=== PATIENT | male | born 1975 | race Caucasian/White ===

== ENCOUNTER 2016-11-13 21:54 | Emergency (ER) | payer MEDICARE | END 2016-11-13 23:45 | disposition left against medical advice (07) | LOC: ER 21:54 | DX: Z53.9 Procedure and treatment not carried out, unspecified reason (principal); S61.219A Laceration without foreign body of unspecified finger without damage to nail, initial encounter; X58.XXXA Exposure to other specified factors, initial encounter ==

== ENCOUNTER 2016-11-25 12:51 | Emergency (ER) | payer OTHER, MEDICARE ==
[2016-11-25] MEDS ORDERED: IBUPROFEN 800 MG TABLET PO ONE (14:09)
--- NOTE | 2016-11-25 14:51 | ER Document Report ---
HPI - HPI Patient complains to provider of: finger injury Onset: Other - 11/13/16 Onset/Duration: Persistent Quality of pain: Achy Severity: Moderate Pain Level: 3 Context: Patient presents emergency department with complaints of right fourth digit pain. Patient reports on November 13 he was at work at [email or web address] when he cut his finger on the ice receptacle. He came to the hospital but it was really busy so he left without being seen. He reports he went home cleaned the finger himself and put Steri-Strips on it. Today he presents due to pain and because he is unable to move the finger. He denies fever vomiting diarrhea. He reports his tetanus is up-to-date. Associated Symptoms: None Exacerbated by: Movement Relieved by: Denies Similar symptoms previously: Yes Recently seen / treated by doctor: No - DERM Skin Color: Normal Past Medical History - General Information source: Patient - Social History Smoking Status: Unknown if Ever Smoked Cigarette use (# per day): No Frequency of alcohol use: None Drug Abuse: None Occupation: [employer] Lives with: Family Family History: None Patient has suicidal ideation: No Patient has homicidal ideation: No Pulmonary Medical History: Reports: Hx Pneumonia Renal/ Medical History: Denies: Hx Peritoneal Dialysis Psychiatric Medical History: Reports: Hx Depression Surgical Hx: Negative - Immunizations Hx Diphtheria, Pertussis, Tetanus Vaccination: Yes Vertical Provider Document - CONSTITUTIONAL Agree With Documented VS: Yes Exam Limitations: No Limitations General Appearance: WD/WN, Mild Distress - winces when finger palpated or attempted to flex - INFECTION CONTROL TRAVEL OUTSIDE OF THE [place] IN LAST 30 DAYS: No - HEENT HEENT: Atraumatic, Normocephalic - NECK Neck: Supple - RESPIRATORY Respiratory: Breath Sounds Normal, No Respiratory Distress O2 Sat by Pulse Oximetry: 94 - CARDIOVASCULAR Cardiovascular: Regular Rate - MUSCULOSKELETAL/EXTREMETIES Musculoskeletal/Extremeties: Tender - right 4th digit pip with swelling, slight erythema, brisk cap refill, pt is able to flex his finger slightly, unable to healthcare management consultant. - NEURO Level of Consciousness: Awake, Alert, Appropriate Motor/Sensory: No Motor Deficit - DERM Integumentary: Warm, Dry Course - Re-evaluation Re-evalutation: 11/25/16 14:46 worried about tenosynovitis, Consulted with Dr. Wilson. Attempted to contact Dr. Wilks but he is in the OR, message left. 11/25/16 15:04 Patient was updated on possible tenosynovitis. He was updated on consult to Dr. Wilks and waiting for response. Patient is very irritated. Reports he is tired of waiting. Patient was educated on the dangers a tenosynovitis. Right now patient agrees to stay and wait for Dr. Wilks to return call. Dr. wilson assessed patient finger and she agrees it may be early signs of tenosynovitis. Patient was advised on the importance of care for this. Dr Wilson advised IV Cipro while waiting for Dr. Wilks. For the IV Cipro could be started Dr. Wilks was able to assess patient finger. He reports to the nurse- kanwal- that patient should be able to be sent home on oral antibiotics pain medication and follow-up with him in the office. Patient was instructed on this plan of care and agrees. He was also instructed on signs and symptoms of infection and importance of monitoring.. Patient received light duty for work. He verbalized understanding to all instructions. - Vital Signs Vital signs: Temp Pulse Resp BP Pulse Ox 98.9 F 80 16 114/77 94 11/25/16 13:08 11/25/16 13:08 11/25/16 13:08 11/25/16 13:08 11/25/16 13:08 - Diagnostic Test Radiology reviewed: Image reviewed, Reports reviewed - Diagnostic report text EXAM DESCRIPTION: FINGER RIGHT COMPLETED DATE/TIME: 11/25/2016 2 :26 pm REASON FOR STUDY: right 4th finger, laceration, unable tomove COMPARISON: None. NUMBER OF VIEWS: Three views. TECHNIQUE: AP, lateral, and oblique images acquired of the right fourth finger. LIMITATIONS: None. FINDINGS: MINERALIZATION: Normal. BONES: No acute fracture or dislocation. No worrisome bone lesions. SOFT TISSUES: Right 4th finger PIP joint region soft tissue swelling. No foreign body. OTHER: No other significant finding. COMMENT: SITE OF TRAUMA/COMPLAINT MARKED/STAMP COMPLETED: YES. TECHNICAL DOCUMENTATION: JOB ID: [id number] [employer]- All Rights Reserved RAD/FINGER RIGHT IMPRESSION: 4th finger PIP joint region soft tissue swelling. No acute fracture or malalignment Discharge - Discharge Clinical Impression: Finger injury Condition: Stable Disposition: HOME, SELF-CARE Instructions: Ciprofloxacin ([facility]), Oral Narcotic Medication ([facility]) Additional Instructions: *You have been treated for a finger injury, suspect tenosynovitis *Take medication as prescribed *Monitor the site for signs of increasing infection such as increasing pain, redness, swelling, warmth *Keep finger clean *Follow up with Dr Wilks for recheck within one week *Return to ED for signs of increasing infection, worsening condition, changes, needs, fever, increased pain Prescriptions: Ciprofloxacin HCl [Cipro 500 mg Tablet] 500 mg PO BID #20 tablet Oxycodone HCl/Acetaminophen [Percocet 5-325 mg Tablet] 1 - 2 tab PO ASDIR PRN # 20 tablet PRN Reason: Forms: Special Work Note, Return to Work Referrals: TRINA KHAN MD [Primary Care Provider] - Follow up in 3-5 days CORRINA LAY MD [ACTIVE STAFF] - Follow up in 3-5 days
[2016-11-25] MEDS ORDERED: CIPROFLOXACIN HCL 500 MG TABLET PO ONE (15:04)
[2016-11-25] MEDS ORDERED: CIPROFLOXACIN 400 MG/D5W RTU 200 ML IV ONE (15:55)
[2016-11-25] MEDS ORDERED: OXYCODONE-ACETAMINOPHEN 5-325 MG TABLET PO ONE (15:55)
[2016-11-25 17:26] VITALS: BP 138/79
--- NOTE | 2016-11-25 17:26 | PDOC CONSULTATION ---
Consultation Consult Date: 11/25/16 Consult reason:: Right fourth finger infection status post laceration 6 days History of Present Illness Admission Date/PCP: TRINA KHAN MD Patient complains of: Right ring finger swelling and reduced range of motion. History of Present Illness: SUE CAPPS is a 41 year old male who had a laceration 6 days ago on the dorsal aspect of his ring finger in her right hand. Initially went to the ER but because of hand left and only played a Steri-Strip on it. He did not taking the antibiotics. Started complaining of redness and swelling and decreased range of motion throughout the days therefore patient return to the ER today. Denies fevers or chills. Denies any drainage. And had difficulty doing normal things like preparing utensils in an abduction. Denies any numbness or tingling or paresthesias. States the pain is a resting 2 out of 10 pain versus 10/ 10 pain with motion. Patient states the pain is at the knuckle the dorsal aspect of his ring finger. Sensitive to touch and full to palpation. Past Medical History Pulmonary Medical History: Reports: Pneumonia Psychiatric Medical History: Reports: Depression Social History Lives with: Family Smoking Status: Unknown if Ever Smoked Frequency of Alcohol Use: Occasional Hx Recreational Drug Use: Yes Drugs: Marijuana Hx Prescription Drug Abuse: No Family History Family History: None Parental Family History Reviewed: No Children Family History Reviewed: No Sibling(s) Family History Reviewed.: No Medication/Allergy Home Medications: Esomeprazole Magnesium [Nexium] 20 mg PO DAILY 05/31/14 Indomethacin [Indocin 50 mg Capsule] 50 mg PO BID 05/31/14 Carisoprodol [Soma 350 mg Tablet] 350 mg PO TID 06/01/14 Zolmitriptan [Zomig] 5 mg NS DAILY PRN 06/01/14 Azithromycin [Zithromax 250 mg Tablet] 500 mg PO DAILY #10 tablet 06/02/14 Levofloxacin [Levaquin 500 mg Tablet] 500 mg PO DAILY #10 tablet 06/02/14 Ciprofloxacin HCl [Cipro 500 mg Tablet] 500 mg PO BID #20 tablet 11/25/16 Oxycodone HCl/Acetaminophen [Percocet 5-325 mg Tablet] 1 - 2 tab PO ASDIR PRN # 20 tablet 11/25/16 Allergies/Adverse Reactions: Penicillins Allergy (Verified 11/25/16 13:05) Difficulty breathing Review of Systems Constitutional: ABSENT: chills, fever(s), night sweats Ears: ABSENT: hearing changes Nose, Mouth, and Throat: ABSENT: sore throat, vertigo Cardiovascular: ABSENT: chest pain, dyspnea on exertion Respiratory: ABSENT: cough, dyspnea Gastrointestinal: ABSENT: abdominal pain, dysphagia, vomiting Genitourinary: ABSENT: difficulty urinating, dysuria Musculoskeletal: PRESENT: as per HPI Integumentary: PRESENT: erythema, wounds. ABSENT: diaphoresis, rash Neurological: ABSENT: abnormal speech, confusion, convulsions Psychiatric: ABSENT: anxiety, depression Endocrine: ABSENT: cold intolerance, heat intolerance Hematologic/Lymphatic: ABSENT: easy bleeding, easy bruising Allergic/Immunologic: ABSENT: seasonal rhinorrhea Physical Exam Vital Signs: Temp Pulse Resp BP Pulse Ox 37.2 C 80 16 114/77 94 11/25/16 13:08 11/25/16 13:08 11/25/16 13:08 11/25/16 13:08 11/25/16 17:07 Intake & Output 11/24/16 11/25/16 11/26/16 06:59 06:59 06:59 Weight 108 kg General appearance: PRESENT: no acute distress Eye exam: PRESENT: EOMI. ABSENT: nystagmus Ear exam: PRESENT: normal external ear exam. ABSENT: drainage Neck exam: ABSENT: lymphadenopathy, thyromegaly, tracheal deviation Respiratory exam: PRESENT: symmetrical, unlabored. ABSENT: accessory muscle use , chest wall tenderness, tachypnea Pulses: PRESENT: normal radial pulses, other - birsk capillary refill all five digits in the right hand Vascular exam: PRESENT: normal capillary refill GI/Abdominal exam: PRESENT: soft. ABSENT: distended, organolmegaly, tenderness Back of Hands Image: 1 - Half an inch laceration that is healing. There is swelling around the PIP joint and wound. No drainage. Mild erythema around the wound. Decreased range of motion of the PIP. Patient can extend -10 of extension and can flex to about 90 of flexion. No fluctuance palpated. Good sensation to light touch distally in both the ulnar and radial aspect of the digit. DIP joint and MCP joint have full range of motion. Neurological exam: PRESENT: alert, awake, oriented to person, oriented to place , oriented to time Psychiatric exam: PRESENT: appropriate affect, normal mood Skin exam: PRESENT: erythema, other - Healing laceration over the fourth digit of the right hand on the dorsal aspect of the PIP joint. Results Impressions: Finger X-Ray 11/25/16 14:09 IMPRESSION: 4th finger PIP joint region soft tissue swelling. No acute fracture or malalignment Assessment & Plan - Diagnosis (1) Laceration of finger of right hand Qualifiers: Encounter type: initial encounter Qualified Code(s): S61.219A - Laceration without foreign body of unspecified finger without damage to nail, initial encounter Is this a current diagnosis for this admission?: Yes (2) Cellulitis of finger of right hand Is this a current diagnosis for this admission?: Yes - Plan Summary Plan Summary: 41-year-old gentleman with early cellulitis of the ring finger of the right hand. Laceration dorsum of the PIP joint in that fourth finger is healing without any drainage. Swelling and decreased range of motion expected due to the laceration and early cellulitis. I agree with the IV antibiotics and discharged on by mouth antibiotics. Instructed to follow-up with us in the next few days. Patient can see Dr. Rosenberg or myself in the office.
== END 2016-11-25 17:27 | disposition home or self-care (01) ==
LOC: ER 12:51
DX: S69.91XA Unspecified injury of right wrist, hand and finger(s), initial encounter (principal); W45.8XXA Other foreign body or object entering through skin, initial encounter; Y92.511 Restaurant or cafe as the place of occurrence of the external cause; Y99.0 Civilian activity done for income or pay
CPT/HCPCS: 99283

== ENCOUNTER 2017-03-06 19:27 | Emergency (ER) | payer MEDICARE, OTHER ==
[2017-03-06 19:59] VITALS: BP 131/77
[2017-03-06] MEDS ORDERED: KETOROLAC TROMETHAMINE INJ/PF 30 MG/1 ML SDV IM ONE (20:43)
[2017-03-06] MEDS ORDERED: METHYLPREDNISOLONE INJ 125 MG/2 ML SDV IM ONE (20:44)
--- NOTE | 2017-03-06 20:46 | ER Document Report ---
HPI - HPI Pain Level: 5 Notes: Patient is a 41-year-old male who presents the ED complaining of right upper back pain status post injury this morning. Patient states that he was pulling and lifting heavy object when he noticed pain in his right trapezius area and upper back. Patient states that the pain is sharp and feels like a spasm as well. He has been using [id number] meds with minimal relief. Patient states his has found some knots near his right shoulder blade that are painful as well. Patient states that the pain will wrap down into his shoulder and partially into the anterior right chest as well as his mid back. Patient states that his arm feels a little heavy but he still has sensation in his hands and is still able move his arm without any difficulties. Patient states that he is still ambulating without becoming short of breath or having any trouble breathing or chest tightness. Denies any headache, fever, head injury, changes in vision/speech/mentation/hearing, URI, sore throat, chest pain, palpitations, syncope, cough, shortness of breath, wheeze, dyspnea, abdominal pain, nausea/vomiting/diarrhea, urinary retention, dysuria, hematuria, loss of control of bowel or bladder, numbness/tingling, saddle anesthesia, muscle paralysis/weakness, or rash. - ROS Notes: REVIEW OF SYSTEMS: CONSTITUTIONAL : Denies fever, chills, or sweats. Denies recent illness. EENT: Denies eye, ear, throat, or mouth pain or symptoms. Denies nasal or sinus congestion or discharge. Denies throat, tongue, or mouth swelling or difficulty swallowing. CARDIOVASCULAR: see hpi. Denies chest pain. Denies palpitations or racing or irregular heart beat. Denies ankle edema. RESPIRATORY: Denies cough, cold, or chest congestion. Denies shortness of breath, difficulty breathing, or wheezing. GASTROINTESTINAL: Denies abdominal pain or distention. Denies nausea, vomiting , or diarrhea. Denies blood in vomitus, stools, or per rectum. Denies black, tarry stools. Denies constipation. GENITOURINARY: Denies difficulty urinating, painful urination, burning, frequency, blood in urine, or discharge. MUSCULOSKELETAL: see hpi SKIN: Denies rash, lesions or sores. NEUROLOGICAL: Denies confusion or altered mental status. Denies passing out or loss of consciousness. Denies dizziness or lightheadedness. Denies headache. Denies weakness or paralysis or loss of use of either side. Denies problems with gait or speech. PSYCHIATRIC: Denies anxiety or stress. Denies depression, suicidal ideation, or homicidal ideation. ALL OTHER SYSTEMS REVIEWED AND NEGATIVE. Dictation was performed using [employer] voice recognition software - DERM Skin Color: Normal, [place] Past Medical History - Social History Smoking Status: Unknown if Ever Smoked Family History: None Pulmonary Medical History: Reports: Hx Pneumonia Renal/ Medical History: Denies: Hx Peritoneal Dialysis Psychiatric Medical History: Reports: Hx Depression - Immunizations Hx Diphtheria, Pertussis, Tetanus Vaccination: Yes Vertical Provider Document - CONSTITUTIONAL Agree With Documented VS: Yes Notes: PHYSICAL EXAMINATION: GENERAL: Well-appearing, well-nourished and in no acute distress. HEAD: Atraumatic, normocephalic. EYES: Pupils equal round and reactive to light, extraocular movements intact, sclera anicteric, conjunctiva are normal. ENT: EAC clear b/l. TM's intact b/l without erythema, fluid, or perforation. Nares patent and without discharge. oropharynx clear without exudates. No tonsilar hypertrophy or erythema. Moist mucous membranes. No sinus tenderness. NECK: Normal range of motion, supple without lymphadenopathy. No rigidity/ meningismus. Non-tender midline. Spurling negative. + tenderness and muscle spasm to the rt c-paraspinal mm. + tenderness and spasming to the rt trap from the mid back to the rt shoulder in the trap distribution. + trigger points noted. No bony tenderness. LUNGS: Breath sounds clear to auscultation bilaterally and equal. No wheezes rales or rhonchi. HEART: Regular rate and rhythm without murmurs, rubs, gallops. Musculoskeletal: UE b/l: FROM to passive/active. Strength 5+/5. No focal deficits noted. Reflexes intact. N/V intact. Extremities: No cyanosis, clubbing, or edema b/l. Peripheral pulses 2+. Capillary refill less than 3 seconds. NEUROLOGICAL: MMSE intact. Cranial nerves grossly intact. Normal speech, normal gait. Normal sensory, motor exams PSYCH: Normal mood, normal affect. SKIN: Warm, Dry, normal turgor, no rashes or lesions noted. - INFECTION CONTROL TRAVEL OUTSIDE OF THE [place] IN LAST 30 DAYS: No - RESPIRATORY O2 Sat by Pulse Oximetry: 97 Course - Re-evaluation Re-evalutation: 03/06/17 21:57 Patient is an afebrile, well-hydrated, 41-year-old male who presents the ED with an upper back strain/sprain based on H&P today. Vitals are stable. PE otherwise unremarkable for any focal neurological deficits. EKG was unremarkable for any acute ST-T changes. Low suspicion/risk for any ACS, PE, pneumothorax, pericarditis, dissection, meningitis, fracture, expanding/ ruptured AAA, cauda equina syndrome, epidural mass lesion/abscess, herniated disc causing severe spinal stenosis, or other systemic infection at this time. Patient is aware that his condition can change from initial presentation and that he needs monitor symptoms closely for any acute changes. Toradol 30 mg given IM today along with Solu-Medrol 125 mg. I will send him home with a prescription for naproxen, baclofen, and Voltaren gel use as directed/needed. Recheck/establish with a PCM this week. Consider consult with physical therapy , orthopedic, chiropractic, community health director. Return to ED with any worsening/ concerning symptoms otherwise as reviewed discharge. Patient is in agreement. - Vital Signs Vital signs: Temp Pulse Resp BP Pulse Ox 98.1 F 69 18 131/77 H 97 03/06/17 19:55 03/06/17 19:55 03/06/17 19:55 03/06/17 19:55 03/06/17 19:55 Discharge - Discharge Clinical Impression: Muscle spasm Trapezius muscle strain Qualifiers: Encounter type: initial encounter Laterality: right Qualified Code(s): S46.811A - Strain of other muscles, fascia and tendons at shoulder and upper arm level, right arm, initial encounter Condition: Stable Disposition: HOME, SELF-CARE Instructions: Ice & Elevation ([facility]), Ice Massage ([facility]), Muscle Strain ([facility]), Upper Back Strain ([facility]), Warm Packs ([facility]) Additional Instructions: Rest, Ice, Compression, Elevation Use sling as directed/needed Tylenol/ibuprofen as needed Light stretches daily Strength exercises as able Moist heat and massage may help F/u-establish with a PCM this week for a recheck Consider consult(s) with Orthopedics, physical therapy, chiropractic, accupuncturist for ongoing/worsening symptoms Return to the ED with any worsening symptoms and/or development of fever, headache, chest pain, palpitations, syncope, shortness of breath, trouble breathing, abdominal pain, n/v/d, blood in stool/urine, loss of control of bowel /bladder, urinary retention, muscle weakness/paralysis, saddle anesthesia, numbness/tingling, or other worsening symptoms that are concerning to you. Prescriptions: Baclofen [Baclofen 10 mg Tablet] 5 mg PO BID PRN #10 tablet PRN Reason: Diclofenac Sodium [Voltaren] 4 gm TP QID PRN #100 gel..gm. PRN Reason: Naproxen 500 mg PO BID PRN #20 tablet PRN Reason: Forms: Elevated Blood Pressure Referrals: [facility] [Provider Group] - Follow up as needed [facility] [Provider Group] - Follow up as needed
--- NOTE | 2017-03-06 21:11 | EKG REPORT ---
SEVERITY:- NORMAL ECG - SINUS RHYTHM : Confirmed by: Rohan Ambrose MD 06-Mar-2017 21:10:32
== END 2017-03-06 21:15 | disposition home or self-care (01) ==
LOC: ER 19:27
DX: S29.012A Strain of muscle and tendon of back wall of thorax, initial encounter (principal); X50.0XXA Overexertion from strenuous movement or load, initial encounter; M54.89 Other dorsalgia; M62.830 Muscle spasm of back
CPT/HCPCS: 93005; 99283; 96372; 96374; 93010; J2930; J1885

== ENCOUNTER → 2017-03-16 | Outpatient (CLI) | payer MEDICARE ==
[2017-03-16 10:45] LABS: APPEARANCE,URINE CLEAR; BILIRUBIN,URINE NEGATIVE (NEGATIVE); GLUCOSE, URINE NEGATIVE (NEGATIVE); KETONES,URINE NEGATIVE (NEGATIVE); LEUKOCYTE ESTERASE,URINE NEGATIVE (NEGATIVE); NITRITE,URINE NEGATIVE (NEGATIVE); PROTEIN,URINE NEGATIVE (NEGATIVE); URINE SPECIFIC GRAVITY 1.021; UROBILINOGEN,URINE NEGATIVE mg/dL (<2.0)
[2017-03-16 10:54] LABS: ABSOLUTE EOSINOPHILS # (AUTO) 0.1 10^3/uL (0.0-0.6); ABSOLUTE LYMPHOCYTES (AUTO) 1.9 10^3/uL (0.5-4.7); ABSOLUTE MONOCYTES (AUTO) 0.5 10^3/uL (0.1-1.4); ABSOLUTE NEUT (AUTO) 2.9 10^3/uL (1.7-8.2); BASOPHILS % (AUTO) 0.5 % (0-2); EOSINOPHILS % (AUTO) 2.2 % (0-6); HEMATOCRIT 53.3 % (37.9-51.0); HEMOGLOBIN 18.3 g/dL (13.5-17.0); HGB HCT DIFFERENCE 1.6; LYMPHOCYTES % (AUTO) 34.9 % (13-45); MEAN CORPUSCULAR HEMOGLOBIN 31.4 pg (27.0-33.4); MEAN CORPUSCULAR HGB CONC 34.4 g/dL (32.0-36.0); MEAN CORPUSCULAR VOLUME 91 fl (80-97); MONOCYTES % (AUTO) 9.5 % (3-13); RED BLOOD COUNT 5.84 10^6/uL (4.35-5.55); RED CELL DISTRIBUTION WIDTH 13.5 % (11.5-14.0); SEGMENTED NEUTROPHILS % (AUTO) 52.9 % (42-78); WHITE BLOOD COUNT 5.5 10^3/uL (4.0-10.5)
[2017-03-16 11:03] LABS: URINE CREATININE 182.4 mg/dL (22-328); URINE PROTEIN 7.9 mg/dL (<12)
[2017-03-16 11:18] LABS: ALANINE AMINOTRANSFERASE 35 U/L (21-72); ALBUMIN 4.4 g/dL (3.5-5.0); ALKALINE PHOSPHATASE 49 U/L (38-126); ANION GAP 10 (5-19); ASPARTATE AMINO TRANSFERASE 21 U/L (17-59); BILIRUBIN,DIRECT 0.3 mg/dL (0.0-0.4); BILIRUBIN,TOTAL 0.7 mg/dL (0.2-1.3); BLOOD UREA NITROGEN 15 mg/dL (7-20); CALCIUM 10.2 mg/dL (8.4-10.2); CARBON DIOXIDE 27 mmol/L (22-30); CHLORIDE 105 mmol/L (98-107); CHOLESTEROL 198.98 mg/dL (0-200); CREATININE RESULT 1.01 mg/dL (0.52-1.25); Direct HDL 38 mg/dL (>40); GLUCOSE 93 mg/dL (75-110); POTASSIUM 5.1 mmol/L (3.6-5.0); SODIUM 141.6 mmol/L (137-145); TRIGLYCERIDES 144 mg/dL (<150); URIC ACID 5.7 mg/dL (3.5-8.5)
[2017-03-16 11:29] LABS: DIRECT LDL 137 mg/dL (<100)
[2017-03-16 11:57] LABS: THYROID STIMULATING HORMONE 1.93 uIU/mL (0.47-4.68)
== END ==
LOC: OD 09:19
PROVIDERS: ATTEND Internal Medicine
DX: R35.8 Other polyuria (principal); Z79.899 Other long term (current) drug therapy
CPT/HCPCS: 36415; 80053; 80061; 81001; 82570; 83036; 84156; 84439; 84443; 84550; 85025

== ENCOUNTER 2017-11-25 15:46 | Observation (INO) | payer MEDICARE ==
[2017-11-25] MEDS ORDERED: NORMAL SALINE 1000 ML 1,000 ML IV PRN (16:47)
[2017-11-25 17:10] LABS: ABSOLUTE EOSINOPHILS # (AUTO) 0.1 10^3/uL (0.0-0.6); ABSOLUTE LYMPHOCYTES (AUTO) 1.9 10^3/uL (0.5-4.7); ABSOLUTE MONOCYTES (AUTO) 0.6 10^3/uL (0.1-1.4); ABSOLUTE NEUT (AUTO) 2.8 10^3/uL (1.7-8.2); BASOPHILS % (AUTO) 0.5 % (0-2); EOSINOPHILS % (AUTO) 1.1 % (0-6); HEMATOCRIT 49.7 % (37.9-51.0); HEMOGLOBIN 17.1 g/dL (13.5-17.0); LYMPHOCYTES % (AUTO) 35.9 % (13-45); MEAN CORPUSCULAR HEMOGLOBIN 30.9 pg (27.0-33.4); MEAN CORPUSCULAR HGB CONC 34.5 g/dL (32.0-36.0); MEAN CORPUSCULAR VOLUME 90 fl (80-97); MONOCYTES % (AUTO) 10.5 % (3-13); PLATELET COUNT 164 10^3/uL (150-450); RED BLOOD COUNT 5.55 10^6/uL (4.35-5.55); RED CELL DISTRIBUTION WIDTH 13.1 % (11.5-14.0); TOTAL CELLS COUNTED % (AUTO) 100 %; WHITE BLOOD COUNT 5.3 10^3/uL (4.0-10.5)
[2017-11-25 17:17] LABS: ALANINE AMINOTRANSFERASE 37 U/L (21-72); ALBUMIN 4.4 g/dL (3.5-5.0); ALKALINE PHOSPHATASE 43 U/L (38-126); ANION GAP 9 (5-19); ASPARTATE AMINO TRANSFERASE 20 U/L (17-59); BILIRUBIN,DIRECT 0.2 mg/dL (0.0-0.4); BILIRUBIN,TOTAL 0.5 mg/dL (0.2-1.3); BLOOD UREA NITROGEN 16 mg/dL (7-20); CARBON DIOXIDE 28 mmol/L (22-30); CHLORIDE 105 mmol/L (98-107); CREATINE KINASE 119 U/L (55-170); GLUCOSE 100 mg/dL (75-110); POTASSIUM 4.6 mmol/L (3.6-5.0); SODIUM 141.5 mmol/L (137-145); TOTAL PROTEIN 6.8 g/dL (6.3-8.2)
[2017-11-25 17:29] LABS: CREATINE KINASE MB 0.66 ng/mL (<4.55)
[2017-11-25 17:36] LABS: TROPONIN I < 0.012 ng/mL
--- NOTE | 2017-11-25 18:49 | EKG REPORT ---
SEVERITY:- NORMAL ECG - SINUS RHYTHM ST ELEV, PROBABLE NORMAL EARLY REPOL PATTERN : Confirmed by: Rohan Ambrose MD 25-Nov-2017 18:48:24
--- NOTE | 2017-11-25 19:42 | RADIOLOGY REPORT (SQ) ---
EXAM DESCRIPTION: CTA CHEST COMPLETED DATE/TIME: 11/25/2017 6:48 pm REASON FOR STUDY: r/o PE R07.9 CHEST PAIN, UNSPECIFIED COMPARISON: 05/31/2014 TECHNIQUE: CT scan of the chest performed using helical scanning technique with dynamic intravenous contrast injection. Images reviewed with lung, soft tissue and bone windows. Reconstructed coronal and sagittal MPR images reviewed. Additional 3 dimensional post-processing performed to develop Maximal Intensity Projection images (LA P). All images stored on PACS. All CT scanners at this facility use dose modulation, iterative reconstruction, and/or weight based d osing when appropriate to reduce radiation dose to as low as reasonably achievable (ALARA). [facility]: Dose Right [facility]: CareDose [facility]: Dose Right [facility]: Teradose 4D [facility]: [employer] CONTRAST TYPE AND DOSE: 82.5 cc Isovue 370- low osmolar. Contrast bolus optimized for the pulmonary arteries. Not diagnostic for the aorta. RENAL FUNCTION: Not recorded. RADIATION DOSE: . LIMITATIONS: None. FINDINGS: LUNGS AND PLEURA: No masses, infiltrates, pneumothorax. No pleural effusions, calcificati ons. AORTA AND GREAT VESSELS: No aneurysm. Contrast bolus not optimized for the aorta. HEART: No pericardial effusion. No significant coronary artery calcifications. PULMONARY ARTERIES: No emboli visualized in the main pulmonary arteries or the segmental branches. HILAR AND MEDIASTINAL STRUCTURES: No identified masses or abnormal nodes. HARDWARE: None in the chest. UPPER ABDOMEN: There are several small low-density lesions in the liver suggestive of cysts. No inte rval change. THYROID AND OTHER SOFT TISSUES: No masses. No adenopathy. BONES: No acute or significant finding. 3D MIPS: Confirm above findings. OTHER: No other significant finding. IMPRESSION: NORMAL CTA OF THE CHEST. NO PULMONARY EMBOLI. COMMENT: Quality ID # [id number]: Final reports with documentation of one or more dose reduction techniques (e.g., Automated exposure control, adjustment of the mA and/or kV according to patient size, use of iterative reconstruction technique) TECHNICAL DOCUMENTATION: JOB ID: [id number] [employer]- All Rights Reserved Reading location - IP/workstation name: [email or web address]
[2017-11-25] MEDS ORDERED: ASPIRIN 81 MG TABLET, CHEWABLE PO SCH (20:30)
[2017-11-25] MEDS ORDERED: IPRATROPIUM/ALBUTEROL 0.5-2.5 MG/3 ML AMPUL NEB PRN (20:33)
[2017-11-25 20:56] LABS: INTERNATIONAL RATION (INR) 0.94; PARTIAL THROMBOPLASTIN TIME 27.7 SEC (23.5-35.8)
[2017-11-25] MEDS ORDERED: ENOXAPARIN SODIUM INJ 40 MG/0.4 ML DISP.SYRIN SUBCUT ONE (21:00)
[2017-11-25] MEDS ORDERED: ASPIRIN 81 MG TABLET, CHEWABLE PO ONE (21:00)
[2017-11-26] MEDS: IPRATROPIUM/ALBUTEROL 0.5-2.5 MG/3 ML AMPUL NEB SCH ×7 (00:49→23:46)
[2017-11-26 08:55] LABS: CREATINE KINASE MB 0.53 ng/mL (<4.55)
[2017-11-26 09:03] LABS: TROPONIN I < 0.012 ng/mL
--- NOTE | 2017-11-26 10:18 | PDOC H&P ---
History of Present Illness Admission Date/PCP: 11/25/17 15:46 TRINA KHAN MD History of Present Illness: SUE CAPPS is a 42 year old male, he came to the office for evaluation of chest pain, the chest pain was provoked by emotional outbursts, he was anxious, the chest pain is left-sided, it radiates to the neck and the shoulder. A 12- lead EKG was done, it was sinus rhythm with tall T waves in precordial leads ischemia cannot be rule out. He was admitted directly from the office to the hospital for further evaluation and observation. CTA chest was done, it was negative for pulmonary embolus, 3 sets of cardiac enzymes negative for acute IL. Patient will need a Cardiolite nuclear stress test to rule out ischemic heart disease Past Medical History Pulmonary Medical History: Reports: Pneumonia Psychiatric Medical History: Reports: Depression Social History Smoking Status: Current Every Day Smoker Cigarettes Packs Per Day: 1 Frequency of Alcohol Use: Occasional Hx Recreational Drug Use: Yes Drugs: Marijuana Hx Prescription Drug Abuse: No Family History Family History: None Parental Family History Reviewed: Yes Children Family History Reviewed: Yes Sibling(s) Family History Reviewed.: Yes Medication/Allergy Home Medications: RX: No Home Medications 11/25/17 Allergies/Adverse Reactions: Penicillins Allergy (Verified 11/25/16 13:05) Difficulty breathing Review of Systems Constitutional: ABSENT: chills, fever(s), headache(s), weight gain, weight loss Eyes: ABSENT: visual disturbances Ears: ABSENT: hearing changes Cardiovascular: PRESENT: chest pain. ABSENT: dyspnea on exertion, edema, orthropnea, palpitations Respiratory: ABSENT: cough, hemoptysis Gastrointestinal: ABSENT: abdominal pain, constipation, diarrhea, hematemesis, hematochezia, nausea, vomiting Genitourinary: ABSENT: dysuria, hematuria Musculoskeletal: ABSENT: joint swelling Integumentary: ABSENT: rash, wounds Neurological: ABSENT: abnormal gait, abnormal speech, confusion, dizziness, focal weakness, syncope Psychiatric: ABSENT: anxiety, depression, homidical ideation, suicidal ideation Endocrine: ABSENT: cold intolerance, heat intolerance, menstrual abnormalities, polydipsia, polyuria Hematologic/Lymphatic: ABSENT: easy bleeding, easy bruising, lymphadenopathy Physical Exam Vital Signs: Temp Pulse Resp BP Pulse Ox 97.6 F 72 16 117/86 H 95 11/26/17 08:00 11/26/17 08:00 11/26/17 08:00 11/26/17 08:00 11/26/17 08:00 Intake & Output 11/25/17 11/26/17 11/27/17 06:59 06:59 06:59 Intake Total 1720 Balance 1720 Weight 106.821 kg General appearance: PRESENT: no acute distress, well-developed, well-nourished Head exam: PRESENT: atraumatic, normocephalic Eye exam: PRESENT: conjunctiva pink, EOMI, PERRLA Ear exam: PRESENT: normal external ear exam Mouth exam: PRESENT: moist, tongue midline Neck exam: PRESENT: full ROM Respiratory exam: PRESENT: clear to auscultation valerie Cardiovascular exam: PRESENT: RRR, +S1, +S2 Pulses: PRESENT: normal dorsalis pedis pul, +2 pedal pulses bilateral Vascular exam: PRESENT: normal capillary refill GI/Abdominal exam: PRESENT: normal bowel sounds, soft Rectal exam: PRESENT: deferred Neurological exam: PRESENT: alert, awake, oriented to person, oriented to place , oriented to time, oriented to situation, CN II-XII grossly intact Psychiatric exam: PRESENT: appropriate affect, normal mood Skin exam: PRESENT: dry, intact, warm Results Laboratory Results: 11/25/17 16:50 11/25/17 16:50 11/25/17 11/25/17 16:50 16:50 WBC 5.3 RBC 5.55 Hgb 17.1 H Hct 49.7 MCV 90 MCH 30.9 MCHC 34.5 RDW 13.1 Plt Count 164 Seg Neutrophils % 52.0 Lymphocytes % 35.9 Monocytes % 10.5 Eosinophils % 1.1 Basophils % 0.5 Absolute Neutrophils 2.8 Absolute Lymphocytes 1.9 Absolute Monocytes 0.6 Absolute Eosinophils 0.1 Absolute Basophils 0.0 Sodium 141.5 Potassium 4.6 Chloride 105 Carbon Dioxide 28 Anion Gap 9 BUN 16 Creatinine 1.01 Est GFR ( Amer) > 60 Est GFR (Non-Af Amer) > 60 Glucose 100 Calcium 10.0 Total Bilirubin 0.5 AST 20 ALT 37 Alkaline Phosphatase 43 Total Protein 6.8 Albumin 4.4 11/25/17 11/25/17 11/26/17 16:50 16:50 07:43 Creatine Kinase 119 77 CK-MB (CK-2) 0.66 Troponin I < 0.012 11/26/17 07:43 Creatine Kinase CK-MB (CK-2) 0.53 Troponin I < 0.012 Impressions: Chest/Abdomen CTA 11/25/17 00:00 IMPRESSION: NORMAL CTA OF THE CHEST. NO PULMONARY EMBOLI. Assessment & Plan - Diagnosis (1) Chest pain Qualifiers: Chest pain type: unspecified Qualified Code(s): R07.9 - Chest pain, unspecified Is this a current diagnosis for this admission?: Yes Plan: The chest pain is suspicious for ischemic heart disease, he will need to have a nuclear stress test this could be arranged outpatient (2) Anxiety Is this a current diagnosis for this admission?: Yes Plan: He has anxiety disorder, started on BuSpar
[2017-11-26] MEDS: KETOROLAC TROMETHAMINE INJ/PF 30 MG/1 ML SDV IV SCH ×3 (10:59→21:33)
[2017-11-26] MEDS: ENOXAPARIN SODIUM INJ 40 MG/0.4 ML DISP.SYRIN SUBCUT SCH (11:00)
[2017-11-26] MEDS: ASPIRIN 81 MG TABLET, CHEWABLE PO SCH (11:02)
[2017-11-26] MEDS ORDERED: ISOSORBIDE MONONITRATE 60 MG TAB.ER.24H PO ONE (11:30)
[2017-11-26] MEDS ORDERED: BUSPIRONE HCL 10 MG TABLET PO ONE (11:30)
--- NOTE | 2017-11-26 11:32 | PDOC DISCHARGE SUMMARY ---
General - Admit/Disc Date/PCP Admission Date/Primary Care Provider: 11/25/17 15:46 TRINA KHAN MD Discharge Date: 11/26/17 - Discharge Diagnosis (1) Chest pain Is this a current diagnosis for this admission?: Yes (2) Anxiety Is this a current diagnosis for this admission?: Yes - Additional Information Prescriptions: Atorvastatin Calcium [Lipitor 80 mg Tablet] 80 mg PO QHS #30 tablet Albuterol Sulfate [Proair HFA] 1 - 2 puff IH Q4 PRN #1 inhaler PRN Reason: Aspirin [Aspirin 81 mg Chewable Tablet] 81 mg PO DAILY #30 tab.chew Buspirone HCl [Buspar 10 mg Tablet] 15 mg PO Q12 #60 tablet Isosorbide Mononitrate [Imdur 60 mg Tablet.er] 60 mg PO DAILY #30 tab.er.24h Metoprolol Succinate [Toprol Xl 50 mg Tab.sr] 50 mg PO DAILY #30 tab.sr.24h Home Medications: Albuterol Sulfate [Proair HFA] 1 - 2 puff IH Q4 PRN #1 inhaler 11/26/17 Aspirin [Aspirin 81 mg Chewable Tablet] 81 mg PO DAILY #30 tab.chew 11/26/17 Atorvastatin Calcium [Lipitor 80 mg Tablet] 80 mg PO QHS #30 tablet 11/26/17 Buspirone HCl [Buspar 10 mg Tablet] 15 mg PO Q12 #60 tablet 11/26/17 Isosorbide Mononitrate [Imdur 60 mg Tablet.er] 60 mg PO DAILY #30 tab.er.24h 07/04 Metoprolol Succinate [Toprol Xl 50 mg Tab.sr] 50 mg PO DAILY #30 tab.sr.24h 07/04 History of Present Illness History of Present Illness: SUE CAPPS is a 42 year old male, he came to the office for evaluation of chest pain, the chest pain was provoked by emotional outbursts, he was anxious, the chest pain is left-sided, it radiates to the neck and the shoulder. A 12- lead EKG was done, it was sinus rhythm with tall T waves in precordial leads ischemia cannot be rule out. He was admitted directly from the office to the hospital for further evaluation and observation. CTA chest was done, it was negative for pulmonary embolus, 3 sets of cardiac enzymes negative for acute CO. Patient will need a Cardiolite nuclear stress test to rule out ischemic heart disease Hospital Course Hospital Course: Patient was admitted for the management of suspicious chest pain, CTA chest was done, pulmonary embolus was ruled out. 3 sets of cardiac enzymes was negative for acute CO. He will need a nuclear stress test to rule out underlining coronary artery disease. This could be arranged outpatient. There is episode of anxiety, he was started on BuSpar for anxiety. Physical Exam Vital Signs: Temp Pulse Resp BP Pulse Ox 97.6 F 72 16 117/86 H 95 11/26/17 08:00 11/26/17 08:00 11/26/17 08:00 11/26/17 08:00 11/26/17 08:00 Intake & Output 11/25/17 11/26/17 11/27/17 06:59 06:59 06:59 Intake Total 1720 Balance 1720 Weight 106.821 kg General appearance: PRESENT: no acute distress, well-developed, well-nourished Head exam: PRESENT: atraumatic, normocephalic Eye exam: PRESENT: conjunctiva pink, EOMI, PERRLA Ear exam: PRESENT: normal external ear exam Mouth exam: PRESENT: moist, tongue midline Neck exam: PRESENT: full ROM Respiratory exam: PRESENT: clear to auscultation valerie Cardiovascular exam: PRESENT: RRR, +S1, +S2 Pulses: PRESENT: normal dorsalis pedis pul, +2 pedal pulses bilateral Vascular exam: PRESENT: normal capillary refill GI/Abdominal exam: PRESENT: normal bowel sounds, soft Rectal exam: PRESENT: deferred Neurological exam: PRESENT: alert, awake, oriented to person, oriented to place , oriented to time, oriented to situation, CN II-XII grossly intact Psychiatric exam: PRESENT: appropriate affect, normal mood Skin exam: PRESENT: dry, intact, warm Results Laboratory Results: 11/25/17 16:50 11/25/17 16:50 11/25/17 11/25/17 16:50 16:50 WBC 5.3 RBC 5.55 Hgb 17.1 H Hct 49.7 MCV 90 MCH 30.9 MCHC 34.5 RDW 13.1 Plt Count 164 Seg Neutrophils % 52.0 Lymphocytes % 35.9 Monocytes % 10.5 Eosinophils % 1.1 Basophils % 0.5 Absolute Neutrophils 2.8 Absolute Lymphocytes 1.9 Absolute Monocytes 0.6 Absolute Eosinophils 0.1 Absolute Basophils 0.0 Sodium 141.5 Potassium 4.6 Chloride 105 Carbon Dioxide 28 Anion Gap 9 BUN 16 Creatinine 1.01 Est GFR ( Amer) > 60 Est GFR (Non-Af Amer) > 60 Glucose 100 Calcium 10.0 Total Bilirubin 0.5 AST 20 ALT 37 Alkaline Phosphatase 43 Total Protein 6.8 Albumin 4.4 11/25/17 11/25/17 11/26/17 16:50 16:50 07:43 Creatine Kinase 119 77 CK-MB (CK-2) 0.66 Troponin I < 0.012 11/26/17 07:43 Creatine Kinase CK-MB (CK-2) 0.53 Troponin I < 0.012 Impressions: Chest/Abdomen CTA 11/25/17 00:00 IMPRESSION: NORMAL CTA OF THE CHEST. NO PULMONARY EMBOLI. Qualifiers - * PATIENT BEING DISCHARGED WITH ANY OF THE FOLLOWING DIAGNOSIS: No
[2017-11-26 15:57] LABS: CREATINE KINASE MB 0.32 ng/mL (<4.55)
[2017-11-26 16:01] LABS: TROPONIN I < 0.012 ng/mL
--- NOTE | 2017-11-26 16:34 | PDOC CONSULTATION ---
Consultation Consult Date: 11/26/17 Attending physician:: TRINA KHAN Consult reason:: Chest pain History of Present Illness Admission Date/PCP: 11/25/17 15:46 TRINA KHAN MD Patient complains of: Chest pain History of Present Illness: SUE CAPPS is a 42 year old male admitted through the office for evaluation of chest pain, the chest pain was provoked by emotional outbursts, he was anxious, the chest pain is left-sided, it radiates to the neck and the shoulder. A 12-lead EKG was done, it was sinus rhythm with tall T waves in precordial leads ischemia cannot be rule out. He was admitted directly from the office to the hospital for further evaluation and observation. CTA chest was done, it was negative for pulmonary embolus, 3 sets of cardiac enzymes negative for acute AL. Patient will need a Cardiolite nuclear stress test to rule out ischemic heart disease. This history obtained by Dr. Khan was reviewed. Patient tells me that his father at age of 50 of congestive heart failure. Patient does give history of smoking. Patient claims he had had numerous spells of chest pain radiating to the left side neck and left arm and occasionally to the right arm. These are related to emotional outburst. Patient does also describes history of snoring and not sleeping well. Past Medical History Pulmonary Medical History: Reports: Pneumonia Psychiatric Medical History: Reports: Depression Social History Information Source: Patient Smoking Status: Current Every Day Smoker Cigarettes Packs Per Day: 1 Frequency of Alcohol Use: Occasional Hx Recreational Drug Use: Yes Drugs: Marijuana Hx Prescription Drug Abuse: No - Advance Directive Resuscitation Status: Full Code Surrogate healthcare decision maker:: Patient's is the surrogate decision-maker Family History Family History: CAD, Other - CHF in father who at age 50 Parental Family History Reviewed: Yes Children Family History Reviewed: Yes Sibling(s) Family History Reviewed.: Yes Medication/Allergy Home Medications: Albuterol Sulfate [Proair HFA] 1 - 2 puff IH Q4 PRN #1 inhaler 11/26/17 Aspirin [Aspirin 81 mg Chewable Tablet] 81 mg PO DAILY #30 tab.chew 11/26/17 Atorvastatin Calcium [Lipitor 80 mg Tablet] 80 mg PO QHS #30 tablet 11/26/17 Buspirone HCl [Buspar 10 mg Tablet] 15 mg PO Q12 #60 tablet 11/26/17 Isosorbide Mononitrate [Imdur 60 mg Tablet.er] 60 mg PO DAILY #30 tab.er.24h 07/04 Metoprolol Succinate [Toprol Xl 50 mg Tab.sr] 50 mg PO DAILY #30 tab.sr.24h 07/04 Allergies/Adverse Reactions: Penicillins Allergy (Verified 11/25/16 13:05) Difficulty breathing Review of Systems Review of Systems: Please see history of present illness and past medical history as wall. Constitutional: No fever or chills reported. Head : No recent chronic headaches, recent head injury. Eyes: No recent eye pain, diplopia, redness, discharge, acute visual changes. Ears: No recent chronic ear pain, acute hearing loss, ear discharge. Oral cavity: No recent ulcerations, bleeding, oral cavity discomfort. Neck: No recent acute neck pain reported. Hematologic: No recent easy bruising or bleeding. Lymphatic: No recent lymph node enlargement reported. Cardiovascular system review: See history of present illness. Respiratory system review: No hemoptysis or blood clots in the lungs reported. Mild Shortness of breath on exertion Gastrointestinal system review: Negative for any recent acute hematemesis, melena. Genitourinary system review: No recent acute or chronic hematuria, flank pain, UTI etc. reported. Skin system review: Negative for any recent abnormal bruising, no rash, no pruritus reported. Neurologic: No prior history of strokes, mini strokes, seizure disorder. Psychologic: No history of major psychosis or major depression reported. Musculoskeletal: Minor aches and pains reported. No acute joint swelling reported. Endocrine: No recent polyuria, polydipsia, recent heat or cold intolerance. Physical Exam Vital Signs: Temp Pulse Resp BP Pulse Ox 97.6 F 58 L 16 117/86 H 96 11/26/17 08:00 11/26/17 14:00 11/26/17 11:50 11/26/17 08:00 11/26/17 11:50 Intake & Output 11/25/17 11/26/17 11/27/17 06:59 06:59 06:59 Intake Total 1720 450 Balance 1720 450 Weight 106.821 kg Exam: GENERAL: well-nourished and in no acute distress. Alert and oriented x3 HEAD: Atraumatic, normocephalic. EYES: Pupils equal round and reactive to light, extraocular movements intact, sclera anicteric, conjunctiva are normal. ENT: TMs normal, nares patent, oropharynx clear without exudates. Moist mucous membranes. No oral ulcerations or bleeding gums noted. High arched palate noted NECK: supple without lymphadenopathy. Trachea is central. No cervical or axillary lymphadenopathy noted. Carotids are 2+, JVD WNL LUNGS: Respiration seems nonlabored, no significant accessory muscle action noted. Breath sounds clear to auscultation bilaterally and equal noted. No wheezes rales or rhonchi noted. No significant dullness noted on percussion. CHEST: Palpation of the chest wall shows no significant chest wall tenderness. HEART: [place] [employer] IN[employer], No PSH, 1/6 STACEY aortic area, 1/6 boyd systolic murmur mitral area, no rubs, no gallops. ABDOMEN: Soft, no significant tenderness appreciated, normoactive bowel sounds. No guarding, no rebound. No rigidity noted . No masses appreciated. EXTREMITIES: Pedal pulses are 1-2+, no calf tenderness noted. No clubbing or cyanosis. negative pedal edema noted NEUROLOGICAL: Focused neurological exam showed no significant neurologic deficit. Normal speech, no focal weakness appreciated. PSYCH: Normal mood, normal affect. Judgment and insight within normal limits. SKIN: No significant ecchymosis, skin is noted to be warm. MUSCULOSKELETAL EXAM: No significant acute joint swelling noted. Results Laboratory Results: 11/25/17 16:50 11/25/17 16:50 11/25/17 11/25/17 16:50 16:50 WBC 5.3 RBC 5.55 Hgb 17.1 H Hct 49.7 MCV 90 MCH 30.9 MCHC 34.5 RDW 13.1 Plt Count 164 Seg Neutrophils % 52.0 Lymphocytes % 35.9 Monocytes % 10.5 Eosinophils % 1.1 Basophils % 0.5 Absolute Neutrophils 2.8 Absolute Lymphocytes 1.9 Absolute Monocytes 0.6 Absolute Eosinophils 0.1 Absolute Basophils 0.0 Sodium 141.5 Potassium 4.6 Chloride 105 Carbon Dioxide 28 Anion Gap 9 BUN 16 Creatinine 1.01 Est GFR ( Amer) > 60 Est GFR (Non-Af Amer) > 60 Glucose 100 Calcium 10.0 Total Bilirubin 0.5 AST 20 ALT 37 Alkaline Phosphatase 43 Total Protein 6.8 Albumin 4.4 11/25/17 11/25/17 11/26/17 16:50 16:50 07:43 Creatine Kinase 119 77 CK-MB (CK-2) 0.66 Troponin I < 0.012 11/26/17 11/26/17 11/26/17 07:43 15:17 15:17 Creatine Kinase 71 CK-MB (CK-2) 0.53 0.32 Troponin I < 0.012 < 0.012 EKG Comments: Sinus rhythm, no acute ST-T wave changes are noted. Impressions: Chest/Abdomen CTA 11/25/17 00:00 IMPRESSION: NORMAL CTA OF THE CHEST. NO PULMONARY EMBOLI. Assessment & Plan - Diagnosis (1) Chest pain Qualifiers: Chest pain type: unspecified Qualified Code(s): R07.9 - Chest pain, unspecified Is this a current diagnosis for this admission?: Yes (2) Tobacco abuse Is this a current diagnosis for this admission?: Yes (3) Sleep disorder Is this a current diagnosis for this admission?: Yes (4) Anxiety Is this a current diagnosis for this admission?: Yes - Notes Notes: Chest pain: Patient has some typical and atypical features of chest pain. Cardiac enzymes so far has been negative. Electrocardiogram did not show any definitive ST segment changes. Multiple differential diagnoses exist in this patient. In descending order of probability this includes underlying coronary artery disease, gastroesophageal reflux, musculoskeletal pain, referred pain from elsewhere, anxiety panic disorder etc.Patient has significant cardiac risk factors, which indicates that there is a intermediate probability of chest discomfort coming from underlying CAD. Feel that it would need to be evaluated further. Discussed evaluation to assess this. In this regard risk benefits of nuclear stress test and other alternative processes were discussed in detail. The patient prefers to undergo nuclear stress test. The small risk of radiation , myocardial infarction, , cardiac arrhythmias, respiratory distress etc. were discussed. Patient understood the risks and gave informed consent. Nuclear stress test was therefore scheduled. For risk evaluation, patient is also being scheduled for a 2-D echocardiogram. Patient questions were answered. Tobacco abuse patient has history of chronic smoking. The benefits of smoking cessation discussed. Continue nicotine patch while inpatient. Sleep disorder: Patient's oropharyngeal exam, body habitus, symptoms suggest presence of sleep apnea syndrome with high likelihood of certainty. Patient will benefit from a sleep study. Discussed association of dysthymia with sleep apnea. Anxiety disorder: Patient noted to have anxiety disorder. Patient will benefit from SSRI agent. - Time Time Spent: 30 to 50 Minutes - CODE STATUS was discussed, patient remains full code. Surrogate decision-maker unchanged. Multiple medical problems were addressed. More than 50% of the time spent coordinating care, discussing management plans with involved caregivers. Management plans discussed with involved personnels. Medical decision making was of moderate to high complexity , patient's has multiple comorbidities. Medications reviewed and adjusted accordingly: Yes
[2017-11-26] MEDS: ACETAMINOPHEN 325 MG TABLET PO PRN (16:35)
[2017-11-26] MEDS: BUSPIRONE HCL 10 MG TABLET PO SCH (21:33)
[2017-11-26] MEDS ORDERED: ATORVASTATIN CALCIUM 80 MG TABLET PO SCH (22:00)
[2017-11-27] MEDS: ACETAMINOPHEN 325 MG TABLET PO PRN (00:42)
[2017-11-27] MEDS: IPRATROPIUM/ALBUTEROL 0.5-2.5 MG/3 ML AMPUL NEB SCH ×3 (03:22→13:09)
[2017-11-27] MEDS: KETOROLAC TROMETHAMINE INJ/PF 30 MG/1 ML SDV IV SCH (05:31)
[2017-11-27] MEDS ORDERED: REGADENOSON INJ 0.4 MG/5 ML DISP.SYRIN IV ONE (08:51)
[2017-11-27] MEDS ORDERED: ISOSORBIDE MONONITRATE 60 MG TAB.ER.24H PO SCH (10:00)
[2017-11-27] MEDS: BUSPIRONE HCL 10 MG TABLET PO SCH (10:53)
[2017-11-27] MEDS: ASPIRIN 81 MG TABLET, CHEWABLE PO SCH (10:53)
[2017-11-27] MEDS: ENOXAPARIN SODIUM INJ 40 MG/0.4 ML DISP.SYRIN SUBCUT SCH (11:06)
[2017-11-27 12:40] VITALS: BP 115/65
--- NOTE | 2017-11-27 14:02 | DRAGON STRESS TEST REPORT ---
INTRAVENOUS LEXISCAN CARDIOLITE STRESS TEST USING SINGLE PHOTON EMMISION COMPUTERIZED TOMOGRAPHIC. DATE OF PROCEDURE: November 27, 2017, INDICATION : Chest pain CARDIAC RISK FACTORS: Smoking and family history of CAD, hypertension, dyslipidemia RESTING EKG: Sinus rhythm, no baseline ST-T wave changes noted. STRESS EKG: No significant ST segment changes noted with LexiScan bolus REASON FOR TERMINATION: Protocol. PROCEDURE REPORT: Baseline heart rate 61 beats per minute with blood pressure of 129/80. Patient had no significant complaints. Patient was bolused with Lexiscan 0.4 mg intravenously followed by saline bolus. Heart rate at 2 minutes post bolus 104 with a blood pressure of 135/64. 3 minutes post bolus heart rate 88 with blood pressure of 147/61. No significant EKG changes were noted. Patient had no significant complaints during the procedure or postprocedure. Patient injected with Aminophyllin 75 mg at 3 minutes or later after Lexiscan bolus. CONCLUSIONS: Normal EKG and hemodynamic response to IV LexiScan. NUCLEAR DATA: At rest the patient was given 14.64 millicuries of technetium 99 sestamibi injected intravenously. As per protocol rest gated SPECT images were obtained. On day of stress test, the patient was given intravenous LexiScan at a dose of 0.4 mg in 5 mL intravenously, followed by flush with normal saline. Subsequently the stress dose of 43.3 millicuries of technetium 99 sestamibi was injected intravenously. As per protocol stress gated images were obtained. NUCLEAR INTERPRETATION: Both raw and processed data were used for interpretation. Visual, qualitative, computer-generated quantitative data was used. There was good myocardial uptake of technetium compound. Motion artifact and soft tissue attenuations were noted. Increased visceral uptake was noted. Borderline decreased uptake was noted in the distal inferior wall in the stress imaging. This is however felt to be due to differences in diaphragmatic attenuation artifact. An area of mild ischemia however cannot be entirely ruled out but felt unlikely. No definitive areas of transient perfusion defect noted, No definitive areas of fixed perfusion defect or scars noted. Diaphragmatic attenuation artifact was noted which cause some difficulty with interpretation of the inferior wall perfusion. EKG gated imaging showed LV EF at 50 %, rest and stress gated EF similar visually. T. I D. ratio was 1.01. Lung heart ratio noted to be within normal limits 0.36. No significant extracardiac and abnormal radiotracer activities were noted. RV free wall uptake was noted to be WNL. IMPRESSION: Also refer to comments under nuclear interpretation. Also test results needs to be interpreted in the context of pretest probability. 1. No definitive areas of transient perfusion defect noted. 2. There is no definitive scintigraphic evidence of myocardial infarction/scar. 3. EKG gated imaging shows left ventricular ejection fraction of approx. 50 %. 4. Clinical correlation requested as occasionally single vessel disease or balanced ischemia could be missed. In approximately 10% of the cases Lexiscan may not cause adequate vasodilatory stress. RECOMMENDATIONS: Aggressive risk factor modification and medical management. Further evaluation may be needed if continued symptoms or other high risk indicators are noted on clinical evaluation. Close cardiology follow-up is also recommended. Clinical correlation with echocardiogram derived ejection fraction. Inability to exercise by itself can lead to increased cardiovascular event risks. Consider cardiology consultation and or follow-up if clinically indicated. I am available for cardiology evaluation and consultation if requested by the excavating supervisor, unless patient already has a staff pharmacist hospital. CAROLINE
--- NOTE | 2017-11-27 14:48 | PDOC PROGRESS REPORT ---
Subjective Progress Note for:: 11/27/17 Subjective:: Nuclear stress test procedure, risk benefits were discussed with the patient in detail. Patient gave informed consent. Patient was seen during the stress test and also after the stress test to discuss the results. Patient seems to be doing better. Pt is denying any chest arm or neck discomfort. Patient denying any PND, orthopnea. Patient denied any sustained palpitations, dizziness, syncope, near syncope. Patient denying any fever chills. Patient denying any other significant discomfort. Patient is maintaining sinus rhythm. No significant cardiac dysrhythmia noted. Review of systems: Rest review of systems negative. Medications: Medications have been reviewed. Reason For Visit: CHEST PAIN,ABNORMAL EKG Physical Exam Vital Signs: Temp Pulse Resp BP Pulse Ox 97.9 F 63 16 115/65 100 11/27/17 14:35 11/27/17 14:35 11/27/17 14:35 11/27/17 14:35 11/27/17 14:35 Intake & Output 11/26/17 11/27/17 11/28/17 06:59 06:59 06:59 Intake Total 1720 1388 Balance 1720 1388 Weight 106.821 kg Exam: GENERAL: well-nourished and in no acute distress. Alert and oriented x3 HEAD: Atraumatic, normocephalic. EYES: Pupils equal round and reactive to light, extraocular movements intact, sclera anicteric, conjunctiva are normal. ENT: TMs normal, nares patent, oropharynx clear without exudates. Moist mucous membranes. No oral ulcerations or bleeding gums noted NECK: supple without lymphadenopathy. Trachea is central. No cervical or axillary lymphadenopathy noted. Carotids are 2+, JVD WNL LUNGS: Respiration seems nonlabored, no significant accessory muscle action noted. Breath sounds clear to auscultation bilaterally and equal noted. No wheezes rales or rhonchi noted. No significant dullness noted on percussion. CHEST: Palpation of the chest wall shows no significant chest wall tenderness. HEART: [place] [employer] LOC[employer], No PSH, 1/6 STACEY aortic area, 1/6 boyd systolic murmur mitral area, no rubs, no gallops. ABDOMEN: Soft, no significant tenderness appreciated, normoactive bowel sounds. No guarding, no rebound. No rigidity noted . No masses appreciated. EXTREMITIES: Pedal pulses are 1-2+, no calf tenderness noted. No clubbing or cyanosis. negative pedal edema noted NEUROLOGICAL: Focused neurological exam showed no significant neurologic deficit. Normal speech, no focal weakness appreciated. PSYCH: Normal mood, normal affect. Judgment and insight within normal limits. SKIN: No significant ecchymosis, skin is noted to be warm. MUSCULOSKELETAL EXAM: No significant acute joint swelling noted. Results Laboratory Results: 11/25/17 16:50 11/25/17 16:50 11/25/17 11/25/17 11/26/17 16:50 16:50 07:43 Creatine Kinase 119 77 CK-MB (CK-2) 0.66 Troponin I < 0.012 11/26/17 11/26/17 11/26/17 07:43 15:17 15:17 Creatine Kinase 71 CK-MB (CK-2) 0.53 0.32 Troponin I < 0.012 < 0.012 EKG Comments: Telemetry shows sinus rhythm without any sustained tachycardia or bradycardia. Impressions: Chest/Abdomen CTA 11/25/17 00:00 IMPRESSION: NORMAL CTA OF THE CHEST. NO PULMONARY EMBOLI. Assessment & Plan - Diagnosis (1) Chest pain Qualifiers: Chest pain type: unspecified Qualified Code(s): R07.9 - Chest pain, unspecified Is this a current diagnosis for this admission?: Yes (2) Tobacco abuse Is this a current diagnosis for this admission?: Yes (3) Sleep disorder Is this a current diagnosis for this admission?: Yes (4) Anxiety Is this a current diagnosis for this admission?: Yes - Notes Notes: Chest pain: Patient claims chest pain is significantly improved. This was evaluated with a nuclear stress test. Nuclear stress test was negative for any significant areas of ischemia or any significant areas of scar. The nuclear stress test is felt to be relatively low risk. Patient informed that occasionally single-vessel disease and balanced ischemia could be missed. Patient advised aggressive risk factor modification and medical therapy. Patient informed that further evaluation may become necessary if symptoms worsens or there is a development of new symptoms indicative of angina or angina equivalent symptom. Tobacco abuse: Patient had been advised to quit smoking. Sleep disorder: Discussed that patient will benefit from a sleep study. Patient has a narrow high arched palate. Anxiety disorder: Patient started on SSRI agent and also anxiolytics. Patient to report any worsening. Case discussed with Dr. Lincoln. Patient can follow-up with me as an outpatient. - Time Time with patient: Greater than 35 minutes - Patient was seen multiple times. Total time exceeds 40 minutes. In the morning nuclear stress test procedure, risks benefits, alternatives were discussed. Patient seen during the stress test. Patient also seen after stress test when results were discussed with the patient in detail. Patient's questions were answered. Nuclear stress test results were discussed with the patient. Patient was informed that no definitive evidence of pharmacologic stress-induced ischemia noted. No definite fixed defects were noted. Patient informed that occasionally significant single vessel disease or balanced ischemia could be missed. However based on the current study results, would recommend aggressive risk factor modification and medical therapy. It may also be worthwhile to consider evaluation or empiric management of other causes of chest pain. Should no other cause be found and if persistent in having chest pain, then cardiac catheterization should be considered. Right now, recommendations are for aggressive risk factor modification and medical management. CODE STATUS was discussed, patient remains full code. Surrogate decision-maker unchanged. Multiple medical problems were addressed. More than 50% of the time spent coordinating care, discussing management plans with involved caregivers. Management plans discussed with involved personnels. Medical decision making was of moderate to high complexity, patient's has multiple comorbidities. Medications reviewed and adjusted accordingly: Yes
== END 2017-11-27 15:20 | disposition home or self-care (01) ==
LOC: 4S 15:46
PROVIDERS: ADMIT Internal Medicine; ATTEND Internal Medicine
DX: R07.89 Other chest pain (principal); F41.9 Anxiety disorder, unspecified; F17.210 Nicotine dependence, cigarettes, uncomplicated; G47.9 Sleep disorder, unspecified; R94.31 Abnormal electrocardiogram [ECG] [EKG]; Z82.49 Family history of ischemic heart disease and other diseases of the circulatory system; Z87.01 Personal history of pneumonia (recurrent)
CPT/HCPCS: 36415 ×2; 82553 ×2; 82550 ×2; 85025; 85610; 85730; 80076; 80048; 84484 ×2; 93017; 78452; 71275; 93005; 93010; G0378 ×3; G0379; A9500; J2785; A9270 ×11; J1885 ×2; J1650 ×2; Q9969; J7620

== ENCOUNTER 2018-10-15 12:57 | Inpatient (IN) | payer MEDICARE ==
[2018-10-15] MEDS ORDERED: ASPIRIN 325 MG TABLET PO ONE (13:09)
--- NOTE | 2018-10-15 13:10 | ER Document Report ---
ED Medical Screen (RME) - General Chief Complaint: Chest Pain Stated Complaint: CHEST PAIN Time Seen by Provider: 10/15/18 13:08 Primary Care Provider: TRINA KHAN MD [Primary Care Provider] - Follow up as needed Mode of Arrival: Ambulatory Information source: Patient, Relative TRAVEL OUTSIDE OF THE [place] IN LAST 30 DAYS: No - HPI Patient complains to provider of: R chest pain/L calf pain Onset: Yesterday - pt with onset of R CP after cough yesterday. Also L calf pain this am - Related Data Allergies/Adverse Reactions: Penicillins Allergy (Verified 10/15/18 12:59) Difficulty breathing Past Medical History Pulmonary Medical History: Reports: Hx Pneumonia Renal/ Medical History: Denies: Hx Peritoneal Dialysis Psychiatric Medical History: Reports: Hx Depression - Immunizations Hx Diphtheria, Pertussis, Tetanus Vaccination: Yes History of Influenza Vaccine for 04/2017 - 09/2017 Season: Refused Physical Exam - Vital signs Vitals: Temp Pulse Resp BP Pulse Ox 98.2 F 80 16 117/82 95 10/15/18 13:01 10/15/18 13:01 10/15/18 13:01 10/15/18 13:01 10/15/18 13:01 Course - Vital Signs Vital signs: Temp Pulse Resp BP Pulse Ox 98.2 F 80 16 117/82 95 10/15/18 13:01 10/15/18 13:01 10/15/18 13:01 10/15/18 13:01 10/15/18 13:01 Doctor's Discharge - Discharge Referrals: TRINA KHAN MD [Primary Care Provider] - Follow up as needed
[2018-10-15] MEDS ORDERED: HYDROCODONE/ACETAMINOPHEN 5-325 MG TABLET PO ONE (13:18)
[2018-10-15] MEDS ORDERED: MORPHINE SULFATE 10 MG/ML INJ IV ONE ×2 (13:27→14:09)
[2018-10-15 13:46] LABS: ABSOLUTE EOSINOPHILS # (AUTO) 0.1 10^3/uL (0.0-0.6); ABSOLUTE LYMPHOCYTES (AUTO) 1.7 10^3/uL (0.5-4.7); ABSOLUTE MONOCYTES (AUTO) 0.6 10^3/uL (0.1-1.4); ABSOLUTE NEUT (AUTO) 2.5 10^3/uL (1.7-8.2); BASOPHILS % (AUTO) 0.5 % (0-2); EOSINOPHILS % (AUTO) 2.4 % (0-6); HEMATOCRIT 50.4 % (37.9-51.0); HEMOGLOBIN 17.6 g/dL (13.5-17.0); LYMPHOCYTES % (AUTO) 34.5 % (13-45); MEAN CORPUSCULAR HEMOGLOBIN 30.9 pg (27.0-33.4); MEAN CORPUSCULAR HGB CONC 34.9 g/dL (32.0-36.0); MEAN CORPUSCULAR VOLUME 89 fl (80-97); MONOCYTES % (AUTO) 12.3 % (3-13); PLATELET COUNT 150 10^3/uL (150-450); RED BLOOD COUNT 5.69 10^6/uL (4.35-5.55); RED CELL DISTRIBUTION WIDTH 12.8 % (11.5-14.0); SEGMENTED NEUTROPHILS % (AUTO) 50.3 % (42-78); TOTAL CELLS COUNTED % (AUTO) 100 %; WHITE BLOOD COUNT 4.9 10^3/uL (4.0-10.5)
[2018-10-15 14:01] LABS: ALANINE AMINOTRANSFERASE 45 U/L (21-72); ALBUMIN 4.3 g/dL (3.5-5.0); ALKALINE PHOSPHATASE 53 U/L (38-126); ANION GAP 8 (5-19); ASPARTATE AMINO TRANSFERASE 29 U/L (17-59); BILIRUBIN,DIRECT 0.3 mg/dL (0.0-0.4); BILIRUBIN,TOTAL 0.7 mg/dL (0.2-1.3); BLOOD UREA NITROGEN 13 mg/dL (7-20); CALCIUM 9.8 mg/dL (8.4-10.2); CARBON DIOXIDE 27 mmol/L (22-30); CHLORIDE 104 mmol/L (98-107); CREATINE KINASE 47 U/L (55-170); GLUCOSE 96 mg/dL (75-110); POTASSIUM 4.6 mmol/L (3.6-5.0); SODIUM 139.2 mmol/L (137-145); TOTAL PROTEIN 7.3 g/dL (6.3-8.2)
[2018-10-15 14:13] LABS: CREATINE KINASE MB < 0.22 ng/mL (<4.55); TROPONIN I < 0.012 ng/mL
--- NOTE | 2018-10-15 15:37 | RADIOLOGY REPORT (SQ) ---
EXAM DESCRIPTION: CHEST SINGLE VIEW COMPLETED DATE/TIME: 10/15/2018 3:25 pm REASON FOR STUDY: CP, DVT COMPARISON: CT angio chest 11/25/2017 EXAM PARAMETERS: NUMBER OF VIEWS: One view. TECHNIQUE: Single frontal radiographic view of the chest acquired. RADIATION DOSE: NA LIMITATIONS: None. FINDINGS: LUNGS AND PLEURA: Peripheral wedge-shaped density in the left lateral lung base. This lik maria elena represents a pulmonary infarct given positive left lower extremity Doppler for deep venous thromb osis. No right-sided acute pulmonary infiltrates. No pleural effusions or pneumothorax. MEDIASTINUM AND HILAR STRUCTURES: No masses. Contour normal. HEART AND VASCULAR STRUCTURES: Heart normal in size. Normal vasculature. BONES: No acute findings. HARDWARE: None in the chest. OTHER: No other significant finding. IMPRESSION: Probable pulmonary infarct in the left lower lobe TECHNICAL DOCUMENTATION: JOB ID: [id number] [employer]- All Rights Reserved Reading location - IP/workstation name: [email or web address]
[2018-10-15 16:10] LABS: INTERNATIONAL RATION (INR) 0.94
[2018-10-15] MEDS ORDERED: ALPRAZOLAM 0.25 MG TABLET PO ONE (16:26)
[2018-10-15] MEDS ORDERED: HEPARIN SOD (PORCINE) 1,000 UNIT/ML 10 ML VIAL IV ONE (17:08)
[2018-10-15] MEDS ORDERED: HEPARIN SODIUM,PORCINE/D5W 25,000 UNIT/250 ML RTUINJ IV PRN (17:08)
--- NOTE | 2018-10-15 17:14 | RADIOLOGY REPORT (SQ) ---
EXAM DESCRIPTION: CTA CHEST COMPLETED DATE/TIME: 10/15/2018 4:51 pm REASON FOR STUDY: pulm infarct? look for PE COMPARISON: Same day chest radiograph and earlier TECHNIQUE: CT scan of the chest performed using helical scanning technique with dynamic intravenous contrast injection. Images reviewed with lung, soft tissue and bone windows. Reconstructed coronal and sagittal MPR images reviewed. Additional 3 dimensional post-processing performed to develop Maximal Intensity Projection images (ID P). All images stored on PACS. All CT scanners at this facility use dose modulation, iterative reconstruction, and/or weight based d osing when appropriate to reduce radiation dose to as low as reasonably achievable (ALARA). [facility]: Dose Right [facility]: CareDose [facility]: Dose Right [facility]: Teradose 4D [facility]: [employer] CONTRAST TYPE AND DOSE: contrast/concentration: Isovue 350.00 mg/ml; Total Contrast Delivered: 86.0 ml; Total Saline Delivered: 80.0 ml 86 mL IV of Omnipaque 350- low osmolar. Contrast bolus optimized for the pulmonary arteries. Not diagnostic for the aorta. RENAL FUNCTION: BUN 13 creatinine 0.97 RADIATION DOSE: CT Rad equipment meets quality standard of care and radiation dose reduction techniq ues were employed. CTDIvol: 29.2 - 39.7 mGy. DLP: 1153 mGy-cm. . LIMITATIONS: None. FINDINGS: LUNGS AND PLEURA: Small linear like opacity of the anterior inferior left upper lobe. Sma ll peripheral ground-glass opacities right middle lobe and anterior inferior left upper lobe. No ple ural effusion or pneumothorax. No pulmonary mass. AORTA AND GREAT VESSELS: No aneurysm. Contrast bolus not optimized for the aorta. HEART: No pericardial effusion. No significant coronary artery calcifications. PULMONARY ARTERIES: Multiple pulmonary emboli and of the segmental and subsegmental pulmonary arterie s extending into the right middle and lower lobes as well as the left lower lobe. HILAR AND MEDIASTINAL STRUCTURES: No identified masses or abnormal nodes. HARDWARE: None in the chest. UPPER ABDOMEN: Multiple hypoattenuating lesions scattered throughout the liver which appears similar to CT of 11/25/2017. Remainder of the visualized upper abdomen is of normal CT appearance appear THYROID AND OTHER SOFT TISSUES: No masses. No adenopathy. BONES: No acute or significant finding. 3D MIPS: Confirm above findings. OTHER: No other significant finding. IMPRESSION: Multiple segmental and subsegmental bilateral pulmonary emboli, as above. Small wedge-s haped left upper lobe opacity and small bilateral upper lobe ground-glass opacities, as above, likely represent small infarcts. COMMENT: This report was called to MOY VALDERRAMA DO at17:06 on 10/15/2018. Quality ID # [id number]: Final reports with documentation of one or more dose reduction techniques (e.g., Au tomated exposure control, adjustment of the mA and/or kV according to patient size, use of iterative reconstruction technique) TECHNICAL DOCUMENTATION: JOB ID: [id number] [employer]- All Rights Reserved Reading location - IP/workstation name: [email or web address]
--- NOTE | 2018-10-15 17:44 | VASCULAR PRELIM REPORT ---
Provider Note Provider Note: Positive for acute DVT in the left lower extremity. Two Posterior Tibial veins involved, adjacent to the Popliteal vein. Discussed with Dr Nix. Ful report to follow.
--- NOTE | 2018-10-15 18:05 | ER Document Report ---
Entered by SRIDHAR MORRIS SCRIBE 10/15/18 1628 Acting as scribe for:MOY VALDERRAMA DO ED General - General Chief Complaint: Chest Pain Stated Complaint: CHEST PAIN Time Seen by Provider: 10/15/18 13:08 Mode of Arrival: Ambulatory Notes: 43 year old male that presents to the emergency department today with complaints of right sided chest wall pain which began yesterday after coughing. Patient states his pain increases with coughing as well as with inhalation. Patient states exhalation relieves his pain. Patient also mentions noticing left lower extremity pain/swelling for the last few days. 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 Patient states that are times when he does not stop to get out and move around for several hours at a time. Patient does smoke x1 ppd. Patient denies any history or family history of PE/DVT. TRAVEL OUTSIDE OF THE [place] IN LAST 30 DAYS: No - Related Data Allergies/Adverse Reactions: Penicillins Allergy (Verified 10/15/18 12:59) Difficulty breathing Past Medical History - General Information source: Patient, Relative - Social History Smoking Status: Current Every Day Smoker Cigarette use (# per day): Yes - 1ppd Frequency of alcohol use: None Drug Abuse: None Lives with: Family Family History: CAD, Other - CHF in father who at age 50 Patient has suicidal ideation: No Patient has homicidal ideation: No Pulmonary Medical History: Reports: Hx Pneumonia Psychiatric Medical History: Reports: Hx Depression - Immunizations Hx Diphtheria, Pertussis, Tetanus Vaccination: Yes Review of Systems - Review of Systems Constitutional: No symptoms reported EENT: No symptoms reported Cardiovascular: See HPI, Chest pain - right sided Respiratory: See HPI, Cough Gastrointestinal: No symptoms reported Genitourinary: No symptoms reported Male Genitourinary: No symptoms reported Musculoskeletal: See HPI, Leg swelling Skin: No symptoms reported Hematologic/Lymphatic: No symptoms reported Neurological/Psychological: No symptoms reported -: Yes All other systems reviewed and negative Physical Exam - Vital signs Vitals: Temp Pulse Resp BP Pulse Ox 98.2 F 80 16 117/82 95 10/15/18 13:01 10/15/18 13:01 10/15/18 13:01 10/15/18 13:01 10/15/18 13:01 - Notes Notes: PHYSICAL EXAM GENERAL: Alert, interacts well. No acute distress. HEAD: Normocephalic, atraumatic. EYES: Pupils equal, round, and reactive to light. Extraocular movements intact. ENT: Oral mucosa moist, tongue midline. NECK: Full range of motion. Supple. Trachea midline. LUNGS: Rhonchi which clears with cough, no wheezing or rales. No respiratory distress. HEART: Regular rate and rhythm. No murmurs, gallops, or rubs. ABDOMEN: Soft, non-tender. Non-distended. Bowel sounds present in all 4 quadrants. No guarding, rigidity, or rebound. EXTREMITIES: Moves all 4 extremities spontaneously. No edema, radial and dorsalis pedis pulses 2/4 bilaterally. No cyanosis. Left calf is more swollen than the right. Positive Koby and Homann's sign. NEUROLOGICAL: Alert and oriented x3. Normal speech. PSYCH: Appears anxious SKIN: Warm, dry, normal turgor. No rashes or lesions noted. Course - Re-evaluation Re-evalutation: 10/15/18 17:16 CBC grossly unremarkable, coags normal, CMP grossly unremarkable, cardiac enzymes negative, venous Doppler study shows DVT in the left leg in the posterior tibial vein. Chest x-ray shows possible left lower lobe infarct, CT angiogram of the chest shows multiple segmental and subsegmental bilateral pulmonary emboli, small wedge-shaped left upper lobe opacity in the anterior inferior aspect of the left upper lobe and small bilateral upper lobe groundglass opacities likely represent small infarcts. Heparin drip has been ordered. No indication for thrombolysis at this time, no evidence of right heart strain. Awaiting callback from hospitalist for possible admission 10/15/18 18:00 Patient is taken that this was a hospitalist case, the patient actually follows with Dr. Lincoln. After discussing the findings with the patient patient stated that he does not wish to follow with Dr. Lincoln. Patient stated that he has been considering changing primary care physicians for a while and would like to be treated by somebody else instead. Patient requests to be admitted by another physician. I did discuss this concern with Dr. Topete who is on-call for Dr. Lincoln, he is agreeable to having the patient admitted by the hospitalist service instead if the hospitalist service is agreeable in order to respect the patient's wishes. Hospitalist service is also agreeable to admitting the patient. Discussed with Dr. Leatha paez who will admit the patient to his service. - Vital Signs Vital signs: Temp Pulse Resp BP Pulse Ox 98.2 F 80 21 H 123/64 92 10/15/18 13:01 10/15/18 13:01 10/15/18 20:01 10/15/18 20:01 10/15/18 20:01 - Laboratory Result Diagrams: 10/15/18 20:36 10/15/18 13:32 Laboratory results interpreted by me: 10/15/18 10/15/18 10/15/18 13:32 13:32 17:50 RBC 5.69 H Hgb 17.6 H Creatine Kinase 47 L Urine Urobilinogen 2.0 H - EKG Interpretation by Me Additional EKG results interpreted by me: 10/15/18 18:02 EKG shows sinus rhythm at a rate of 77, left axis deviation, normal intervals, no ST segment elevations or depressions, no T wave inversions per my interpretation. Critical Care Note - Critical Care Note Total time excluding time spent on procedures (mins): 35 Discharge - Discharge Clinical Impression: Bilateral pulmonary embolism, Pulmonary infarct Left leg DVT Qualifiers: Affected thrombotic vein of extremity: tibial Chronicity: acute Qualified Code(s): I82.442 - Acute embolism and thrombosis of left tibial vein Condition: Fair Disposition: ADMITTED INPATIENT Admitting Provider: Hospitalist - [facility] Admitted: [facility] I personally performed the services described in the documentation, reviewed and edited the documentation which was dictated to the scribe in my presence, and it accurately records my words and actions.
[2018-10-15 18:19] LABS: APPEARANCE,URINE CLEAR; BILIRUBIN,URINE NEGATIVE (NEGATIVE); COLOR,URINE YELLOW; GLUCOSE, URINE NEGATIVE (NEGATIVE); KETONES,URINE NEGATIVE (NEGATIVE); LEUKOCYTE ESTERASE,URINE NEGATIVE (NEGATIVE); NITRITE,URINE NEGATIVE (NEGATIVE); PROTEIN,URINE NEGATIVE (NEGATIVE); URINE SPECIFIC GRAVITY 1.034
[2018-10-15] MEDS ORDERED: ONDANSETRON HCL INJ/PF 4 MG/2 ML SDV IV PRN (18:26)
--- NOTE | 2018-10-15 18:26 | PDOC H&P ---
History of Present Illness Admission Date/PCP: TRINA KHAN MD History of Present Illness: SUE CAPPS is a 43 year old male patient with no significant past medical history except for tobacco dependence presented with chief complaint of chest pain. The patient reports this is a he has been in his usual baseline state of health up until yesterday when he started to have sharp nonradiating right side chest pain which is precipitated by cough and deep breathing. [place] also complaining of several days history of left calf swelling pain and tenderness. 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 His venous Doppler is positive for DVT and CT of the chest reported as multiple segmental and subsegmental bilateral pulmonary emboli. Patient denies any fever, chills, palpitation, nausea, vomiting, abdominal pain or change in his bowel habits. No urinary complaints. No dizziness, headache or blurry of vision. Past Medical History Pulmonary Medical History: Reports: Pneumonia Psychiatric Medical History: Reports: Depression Social History Lives with: Family Smoking Status: Current Every Day Smoker Frequency of Alcohol Use: Occasional Hx Recreational Drug Use: Yes Drugs: Marijuana Hx Prescription Drug Abuse: No - Advance Directive Resuscitation Status: Full Code Family History Family History: CAD, DM, Hypertension, Other - CHF in father who at age 50 Parental Family History Reviewed: Yes Children Family History Reviewed: Yes Sibling(s) Family History Reviewed.: Yes Medication/Allergy Home Medications: Albuterol Sulfate [Proair HFA] 1 - 2 puff IH Q4 PRN #1 inhaler 11/26/17 Alprazolam [Xanax 0.25 mg Tablet] 0.25 mg PO Q8H #30 tab 11/27/17 Sertraline HCl 50 mg PO DAILY #30 tablet 11/27/17 Allergies/Adverse Reactions: Penicillins Allergy (Verified 10/15/18 12:59) Difficulty breathing Review of Systems Constitutional: ABSENT: chills, fever(s), headache(s), weight gain, weight loss Eyes: ABSENT: visual disturbances Ears: ABSENT: hearing changes Cardiovascular: PRESENT: chest pain Respiratory: PRESENT: cough Gastrointestinal: ABSENT: abdominal pain, constipation, diarrhea, hematemesis, hematochezia, nausea, vomiting Genitourinary: ABSENT: dysuria, hematuria Musculoskeletal: ABSENT: joint swelling Integumentary: ABSENT: rash, wounds Neurological: ABSENT: abnormal gait, abnormal speech, confusion, dizziness, focal weakness, syncope Psychiatric: ABSENT: anxiety, depression, homidical ideation, suicidal ideation Endocrine: ABSENT: cold intolerance, heat intolerance, polydipsia, polyuria Hematologic/Lymphatic: ABSENT: easy bleeding, easy bruising Physical Exam Vital Signs: Temp Pulse Resp BP Pulse Ox 98.2 F 80 18 119/68 96 10/15/18 13:01 10/15/18 13:01 10/15/18 17:01 10/15/18 17:01 10/15/18 17:01 Intake & Output 10/14/18 10/15/18 10/16/18 06:59 06:59 06:59 Weight 115.6 kg Results Laboratory Results: 10/15/18 13:32 10/15/18 13:32 10/15/18 10/15/18 13:32 13:32 WBC 4.9 RBC 5.69 H Hgb 17.6 H Hct 50.4 MCV 89 MCH 30.9 MCHC 34.9 RDW 12.8 Plt Count 150 Seg Neutrophils % 50.3 Lymphocytes % 34.5 Monocytes % 12.3 Eosinophils % 2.4 Basophils % 0.5 Absolute Neutrophils 2.5 Absolute Lymphocytes 1.7 Absolute Monocytes 0.6 Absolute Eosinophils 0.1 Absolute Basophils 0.0 Sodium 139.2 Potassium 4.6 Chloride 104 Carbon Dioxide 27 Anion Gap 8 BUN 13 Creatinine 0.97 Est GFR ( Amer) > 60 Est GFR (Non-Af Amer) > 60 Glucose 96 Calcium 9.8 Total Bilirubin 0.7 AST 29 ALT 45 Alkaline Phosphatase 53 Total Protein 7.3 Albumin 4.3 10/15/18 10/15/18 13:32 13:32 Creatine Kinase 47 L CK-MB (CK-2) < 0.22 Troponin I < 0.012 Impressions: Chest X-Ray 10/15/18 13:08 IMPRESSION: Probable pulmonary infarct in the left lower lobe Chest/Abdomen CTA 10/15/18 15:55 IMPRESSION: Multiple segmental and subsegmental bilateral pulmonary emboli, as above. Small wedge-shaped left upper lobe opacity and small bilateral upper lobe ground-glass opacities, as above, likely represent small infarcts. Assessment and Plan - Diagnosis (1) Acute bilateral pulmonary embolism Is this a current diagnosis for this admission?: Yes Plan: I will start the patient on Lovenox and later transitioned him to Eliquis. Since the DVT and PEs due to for the recurrent cause he may need the treatment for 3-6 months. And follow-up with his primary care physician. (2) Tobacco dependence Is this a current diagnosis for this admission?: Yes Plan: Patient smokes a pack a day. I counseled and encouraged him to quit smoking. And I offered him nicotine patch and he is agreed. (3) Depression Is this a current diagnosis for this admission?: Yes Plan: Continue his home medication (4) Obesity (BMI 30.0-34.9) Is this a current diagnosis for this admission?: Yes Plan: Patient advised to do lifestyle modification. - Inpatient Certification Medical Necessity: Need Close Monitoring Due to Risk of Patient Decompensation
[2018-10-15] MEDS ORDERED: NICOTINE 21 MG/24 HR PATCH.TD24 TD ONE (18:32)
[2018-10-15] MEDS ORDERED: ALPRAZOLAM 0.5 MG TABLET PO PRN (18:37)
[2018-10-15] MEDS: OXYCODONE-ACETAMINOPHEN 5-325 MG TABLET PO PRN (19:36)
[2018-10-15] MEDS ORDERED: HEPARIN SOD (PORCINE) 1,000 UNIT/ML 10 ML VIAL IV PRN (20:08)
--- NOTE | 2018-10-15 20:12 | EKG REPORT ---
SEVERITY:- NORMAL ECG - SINUS RHYTHM : Confirmed by: Melissa Szymanski MD 15-Oct-2018 20:10:53
[2018-10-15 21:13] LABS: ABSOLUTE EOSINOPHILS # (AUTO) 0.1 10^3/uL (0.0-0.6); ABSOLUTE LYMPHOCYTES (AUTO) 2.2 10^3/uL (0.5-4.7); ABSOLUTE MONOCYTES (AUTO) 0.9 10^3/uL (0.1-1.4); ABSOLUTE NEUT (AUTO) 3.6 10^3/uL (1.7-8.2); BASOPHILS % (AUTO) 0.2 % (0-2); EOSINOPHILS % (AUTO) 1.5 % (0-6); HEMATOCRIT 46.1 % (37.9-51.0); HEMOGLOBIN 16.3 g/dL (13.5-17.0); MEAN CORPUSCULAR HEMOGLOBIN 31.4 pg (27.0-33.4); MEAN CORPUSCULAR HGB CONC 35.4 g/dL (32.0-36.0); MEAN CORPUSCULAR VOLUME 89 fl (80-97); MONOCYTES % (AUTO) 12.6 % (3-13); PLATELET COUNT 156 10^3/uL (150-450); RED BLOOD COUNT 5.18 10^6/uL (4.35-5.55); RED CELL DISTRIBUTION WIDTH 12.7 % (11.5-14.0); SEGMENTED NEUTROPHILS % (AUTO) 52.7 % (42-78); TOTAL CELLS COUNTED % (AUTO) 100 %; WHITE BLOOD COUNT 6.8 10^3/uL (4.0-10.5)
[2018-10-15 21:14] LABS: INTERNATIONAL RATION (INR) 1.07; PROTHROMBIN TIME 14.4 SEC (11.4-15.4)
[2018-10-15] MEDS: ENOXAPARIN SODIUM INJ 120 MG/0.8 ML DISP.SYRIN SUBCUT SCH (21:48)
[2018-10-15] MEDS: FAMOTIDINE 20 MG TABLET PO SCH ×2 (21:48→22:33)
[2018-10-15 21:57] LABS: PARTIAL THROMBOPLASTIN TIME > 235.0 SEC (23.5-35.8)
[2018-10-15] MEDS ORDERED: ALPRAZOLAM 0.25 MG TABLET PO PRN (22:30)
[2018-10-15] MEDS: KETOROLAC TROMETHAMINE INJ/PF 30 MG/1 ML SDV IV PRN (22:32)
[2018-10-16] MEDS: OXYCODONE-ACETAMINOPHEN 5-325 MG TABLET PO PRN ×3 (00:57→22:29)
[2018-10-16] MEDS: ENOXAPARIN SODIUM INJ 120 MG/0.8 ML DISP.SYRIN SUBCUT SCH ×3 (03:15→22:27)
[2018-10-16] MEDS: KETOROLAC TROMETHAMINE INJ/PF 30 MG/1 ML SDV IV PRN ×2 (04:42→18:17)
[2018-10-16 06:56] LABS: HEMATOCRIT 45.6 % (37.9-51.0); HEMOGLOBIN 15.9 g/dL (13.5-17.0); MEAN CORPUSCULAR HGB CONC 34.8 g/dL (32.0-36.0); MEAN CORPUSCULAR VOLUME 89 fl (80-97); PLATELET COUNT 141 10^3/uL (150-450); RED BLOOD COUNT 5.11 10^6/uL (4.35-5.55); WHITE BLOOD COUNT 4.8 10^3/uL (4.0-10.5)
[2018-10-16 07:18] LABS: BLOOD UREA NITROGEN 17 mg/dL (7-20); CALCIUM 9.5 mg/dL (8.4-10.2); GLUCOSE 98 mg/dL (75-110); LIPASE 46.9 U/L (23-300); POTASSIUM 4.1 mmol/L (3.6-5.0)
[2018-10-16 07:50] LABS: ANION GAP 7 (5-19); CARBON DIOXIDE 25 mmol/L (22-30); CHLORIDE 106 mmol/L (98-107); SODIUM 138.1 mmol/L (137-145)
[2018-10-16] MEDS ORDERED: ONDANSETRON HCL INJ/PF 4 MG/2 ML SDV IV PRN (09:30)
[2018-10-16] MEDS: METOPROLOL TARTRATE 50 MG TABLET PO SCH (09:38)
[2018-10-16] MEDS: DOCUSATE SODIUM 100 MG CAPSULE PO SCH (09:38)
[2018-10-16] MEDS: FAMOTIDINE 20 MG TABLET PO SCH ×2 (09:39→22:29)
[2018-10-16] MEDS: NICOTINE 21 MG/24 HR PATCH.TD24 TD SCH (09:39)
[2018-10-16] MEDS ORDERED: DOCUSATE SODIUM 100 MG/10 ML UDC PO SCH (10:00)
[2018-10-16] MEDS: ALPRAZOLAM 0.5 MG TABLET PO PRN ×2 (10:15→22:28)
--- NOTE | 2018-10-16 10:43 | XCELERA REPORT ---
[address] [address] Lower Extremity Venous Evaluation Procedure: Color flow and duplex imaging of the veins of the left lower extremity as well as the right Common Femoral vein. Right Sided Venous Evaluation The right common femoral vein is fully compressible. Spontaneous and phasic flow is present in the right common femoral vein. Left Sided Venous Evaluation Abnormal vessel filling echogenic, enlarged veins, no compression or Colour flow. In two Posterior Tibial veins, right up to the Popliteal vein. Critical Findings Discussed with Dr Nix. Interpretation Summary Deep venous thrombosis in left sided Posterior Tibial veins. Acute or sub acute. Name: SUE CAPPS Age: 43 yrs Gender: Male : 1975 Patient Status: Preadmit Patient Location: ER Study Date: 10/15/2018 02:25 PM Reason For Study: L calf pain Ordering Physician: GUILLERMO NIX Performed By: Albaro Voss : GUILLERMO NIX > Mor Buenrostro
--- NOTE | 2018-10-16 11:36 | PDOC PROGRESS REPORT ---
Subjective Progress Note for:: 10/16/18 Subjective:: SUE CAPPS is a 43 year old male patient with no significant past medical history except for tobacco dependence presented with chief complaint of chest pain. The patient reports this is a he has been in his usual baseline state of health up until yesterday when he started to have sharp nonradiating right side chest pain which is precipitated by cough and deep breathing. He CT scan of the chest with contrast revealed bilateral PE and his Doppler ultrasound also positive left leg DVT. Patient has been on Lovenox and will transition him later to Eliquis. This morning I seen patient resting in bed. He reports this his cough is subsiding but the chest pain is still there. His vital signs are stable. Reason For Visit: BILATERAL PULMONARY EMBOLISM. AND LEFT LEG DVT. Physical Exam Vital Signs: Temp Pulse Resp BP Pulse Ox 98.2 F 63 18 119/54 L 92 10/16/18 08:23 10/16/18 08:23 10/16/18 08:23 10/16/18 08:23 10/16/18 08:23 Intake & Output 10/15/18 10/16/18 10/17/18 06:59 06:59 06:59 Intake Total 381 Balance 381 Weight 112 kg General appearance: PRESENT: mild distress Head exam: PRESENT: atraumatic Eye exam: PRESENT: conjunctiva pink Mouth exam: PRESENT: moist Neck exam: ABSENT: carotid bruit, JVD, lymphadenopathy, thyromegaly Respiratory exam: PRESENT: decreased breath sounds. ABSENT: rales, rhonchi, wheezes Cardiovascular exam: PRESENT: RRR. ABSENT: diastolic murmur, rubs, systolic murmur Neurological exam: PRESENT: alert, awake, oriented to time, oriented to situation Results Laboratory Results: 10/16/18 06:26 10/16/18 06:26 10/15/18 10/15/18 10/15/18 13:32 13:32 17:50 WBC 4.9 RBC 5.69 H Hgb 17.6 H Hct 50.4 MCV 89 MCH 30.9 MCHC 34.9 RDW 12.8 Plt Count 150 Seg Neutrophils % 50.3 Lymphocytes % 34.5 Monocytes % 12.3 Eosinophils % 2.4 Basophils % 0.5 Absolute Neutrophils 2.5 Absolute Lymphocytes 1.7 Absolute Monocytes 0.6 Absolute Eosinophils 0.1 Absolute Basophils 0.0 Sodium 139.2 Potassium 4.6 Chloride 104 Carbon Dioxide 27 Anion Gap 8 BUN 13 Creatinine 0.97 Est GFR ( Amer) > 60 Est GFR (Non-Af Amer) > 60 Glucose 96 Calcium 9.8 Total Bilirubin 0.7 AST 29 ALT 45 Alkaline Phosphatase 53 Total Protein 7.3 Albumin 4.3 Lipase Urine Color YELLOW Urine Appearance CLEAR Urine pH 7.0 Ur Specific [place] 1.034 Urine Protein NEGATIVE Urine Glucose (UA) NEGATIVE Urine Ketones NEGATIVE Urine Blood NEGATIVE Urine Nitrite NEGATIVE Ur Leukocyte Esterase NEGATIVE Urine WBC (Auto) 0 Urine RBC (Auto) 2 10/15/18 10/16/18 10/16/18 20:36 06:26 06:26 WBC 6.8 4.8 RBC 5.18 5.11 Hgb 16.3 15.9 Hct 46.1 45.6 MCV 89 89 MCH 31.4 31.0 MCHC 35.4 34.8 RDW 12.7 13.0 Plt Count 156 141 L Seg Neutrophils % 52.7 Lymphocytes % 33.0 Monocytes % 12.6 Eosinophils % 1.5 Basophils % 0.2 Absolute Neutrophils 3.6 Absolute Lymphocytes 2.2 Absolute Monocytes 0.9 Absolute Eosinophils 0.1 Absolute Basophils 0.0 Sodium 138.1 Potassium 4.1 Chloride 106 Carbon Dioxide 25 Anion Gap 7 BUN 17 Creatinine 1.08 Est GFR ( Amer) > 60 Est GFR (Non-Af Amer) > 60 Glucose 98 Calcium 9.5 Total Bilirubin AST ALT Alkaline Phosphatase Total Protein Albumin Lipase 46.9 Urine Color Urine Appearance Urine pH Ur Specific [place] Urine Protein Urine Glucose (UA) Urine Ketones Urine Blood Urine Nitrite Ur Leukocyte Esterase Urine WBC (Auto) Urine RBC (Auto) 10/15/18 10/15/18 13:32 13:32 Creatine Kinase 47 L CK-MB (CK-2) < 0.22 Troponin I < 0.012 Impressions: Chest X-Ray 10/15/18 13:08 IMPRESSION: Probable pulmonary infarct in the left lower lobe Chest/Abdomen CTA 10/15/18 15:55 IMPRESSION: Multiple segmental and subsegmental bilateral pulmonary emboli, as above. Small wedge-shaped left upper lobe opacity and small bilateral upper lobe ground-glass opacities, as above, likely represent small infarcts. Assessment and Plan - Diagnosis (1) Acute bilateral pulmonary embolism Is this a current diagnosis for this admission?: Yes Plan: We will transition him to [facility]. (2) Tobacco dependence Is this a current diagnosis for this admission?: Yes Plan: Patient smokes a pack a day. I counseled and encouraged him to quit smoking. And I offered him nicotine patch and he is agreed. (3) Depression Is this a current diagnosis for this admission?: Yes Plan: Continue his home medication (4) Obesity (BMI 30.0-34.9) Is this a current diagnosis for this admission?: Yes Plan: Patient advised to do lifestyle modification.
[2018-10-16] MEDS ORDERED: NORMAL SALINE 1000 ML 1,000 ML IV ONE (18:00)
[2018-10-17] MEDS: KETOROLAC TROMETHAMINE INJ/PF 30 MG/1 ML SDV IV PRN ×3 (00:23→18:12)
[2018-10-17 05:56] LABS: HEMATOCRIT 44.5 % (37.9-51.0); HEMOGLOBIN 15.3 g/dL (13.5-17.0); MEAN CORPUSCULAR HEMOGLOBIN 30.8 pg (27.0-33.4); MEAN CORPUSCULAR HGB CONC 34.4 g/dL (32.0-36.0); MEAN CORPUSCULAR VOLUME 90 fl (80-97); PLATELET COUNT 136 10^3/uL (150-450); RED BLOOD COUNT 4.97 10^6/uL (4.35-5.55)
[2018-10-17] MEDS: OXYCODONE-ACETAMINOPHEN 5-325 MG TABLET PO PRN ×4 (08:42→22:39)
[2018-10-17] MEDS: NICOTINE 21 MG/24 HR PATCH.TD24 TD SCH (09:19)
[2018-10-17] MEDS: DOCUSATE SODIUM 100 MG CAPSULE PO SCH (09:20)
[2018-10-17] MEDS: METOPROLOL TARTRATE 50 MG TABLET PO SCH (09:20)
[2018-10-17] MEDS: FAMOTIDINE 20 MG TABLET PO SCH ×2 (09:20→22:39)
[2018-10-17] MEDS: ENOXAPARIN SODIUM INJ 120 MG/0.8 ML DISP.SYRIN SUBCUT SCH (10:28)
[2018-10-17] MEDS: ALPRAZOLAM 0.5 MG TABLET PO PRN ×2 (10:29→22:44)
[2018-10-17] MEDS ORDERED: ALPRAZOLAM 0.25 MG TABLET PO PRN (10:54)
--- NOTE | 2018-10-17 11:15 | PDOC PROGRESS REPORT ---
Subjective Progress Note for:: 10/17/18 Subjective:: 43 year old male patient with no significant past medical history except for tobacco dependence presented with chief complaint of chest pain. The patient reports this is a he has been in his usual baseline state of health up until yesterday when he started to have sharp nonradiating right side chest pain which is precipitated by cough and deep breathing. He CT scan of the chest with contrast revealed bilateral PE and his Doppler ultrasound also positive left leg DVT. Patient has been on Lovenox and will transition him later to Eliquis. This morning I seen patient resting in bed. He reports this his cough is subsiding but the chest pain is still there. His vital signs are stable. [id number]-old male admitted with bilateral PE and left lower lytic DVT he is on Percocet 5 325 mg every 4 as needed and also tramadol is complaining of se lyn pains and rest right side of the chest also pain in the left leg requesting increasing doses of Percocet. Is also given the history of DVTs involving her mom, she also has Gavino filter. Family is requesting for hematology consult. No acute events in the last 24 hours patient is afebrile. Reason For Visit: BILATERAL PULMONARY EMBOLISM. AND LEFT LEG DVT. Physical Exam Vital Signs: Temp Pulse Resp BP Pulse Ox 97.8 F 68 18 120/69 95 10/17/18 08:20 10/17/18 08:20 10/17/18 08:20 10/17/18 08:20 10/17/18 08:20 Intake & Output 10/16/18 10/17/18 10/18/18 06:59 06:59 06:59 Intake Total 381 2715 Balance 381 2715 Weight 112 kg 119.5 kg General appearance: PRESENT: no acute distress, mild distress, well-developed Head exam: PRESENT: atraumatic Eye exam: PRESENT: PERRLA Mouth exam: PRESENT: moist, tongue midline Neck exam: ABSENT: carotid bruit, JVD, lymphadenopathy, thyromegaly Respiratory exam: PRESENT: clear to auscultation valerie. ABSENT: rales, rhonchi, wheezes Cardiovascular exam: PRESENT: RRR. ABSENT: diastolic murmur, rubs, systolic murmur GI/Abdominal exam: PRESENT: normal bowel sounds, soft. ABSENT: distended, guarding, mass, organolmegaly, rebound, tenderness Extremities exam: PRESENT: full ROM. ABSENT: calf tenderness, clubbing, pedal edema Neurological exam: PRESENT: alert, awake, oriented to person, oriented to place, oriented to time, oriented to situation, CN II-XII grossly intact. ABSENT: motor sensory deficit Psychiatric exam: PRESENT: appropriate affect, normal mood. ABSENT: homicidal ideation, suicidal ideation Results Laboratory Results: 10/17/18 05:19 10/16/18 06:26 10/17/18 05:19 WBC 4.0 RBC 4.97 Hgb 15.3 Hct 44.5 MCV 90 MCH 30.8 MCHC 34.4 RDW 13.0 Plt Count 136 L 10/15/18 10/15/18 13:32 13:32 Creatine Kinase 47 L CK-MB (CK-2) < 0.22 Troponin I < 0.012 Impressions: Chest X-Ray 10/15/18 13:08 IMPRESSION: Probable pulmonary infarct in the left lower lobe Chest/Abdomen CTA 10/15/18 15:55 IMPRESSION: Multiple segmental and subsegmental bilateral pulmonary emboli, as above. Small wedge-shaped left upper lobe opacity and small bilateral upper lobe ground-glass opacities, as above, likely represent small infarcts. Assessment and Plan - Diagnosis (1) Acute bilateral pulmonary embolism Is this a current diagnosis for this admission?: Yes Plan: We will transition him to Eliquis. 12/[id number]-oiqi-old male admitted with bilateral pulmonary embolism on Lovenox 110 mg every 12 hours it was changed to Xarelto 15 mg p.o. twice daily patient is also given the family history of DVTs consultation with Dr. Dow was requested. Pulse oxes 95% on room air. Complaining of bilateral chest pains Percocet was increased to 10/325 mg every 4 as needed. Plan is to continue the present management. (2) Obesity (BMI 30.0-34.9) Is this a current diagnosis for this admission?: Yes Plan: Patient advised to do lifestyle modification. 08/2018-patient BMI is more than 35. Diet exercise weight loss lifestyle modifications are discussed with the patient. Dietary consult was requested. (3) Tobacco dependence Is this a current diagnosis for this admission?: Yes Plan: Patient smokes a pack a day. I counseled and encouraged him to quit smoking. And I offered him nicotine patch and he is agreed. 10/17/2018-patient has history of chronic smoking he is on nicotine patch smoking counseling was provided again for more than 10 minutes. - Time Time Spent with patient: 15-24 minutes Smoking Cessation Education: over 10 minutes Medications reviewed and adjusted accordingly: Yes Anticipated discharge: Home
--- NOTE | 2018-10-17 17:25 | Progress Note ---
Provider Note Provider Note: Consult was received. Chart has been reviewed. However, patient was in the shower and unavailable. I will be happy to see him in the morning with full consult to follow. I agree with Xarelto 15 mg PO BID. Lovenox has been stopped. Further recommendations after consult has been completed. Please call with any concerns.
[2018-10-17] MEDS ORDERED: NICOTINE 21 MG/24 HR PATCH.TD24 TD ONE (18:00)
[2018-10-17] MEDS: RIVAROXABAN 15 MG TABLET PO SCH (18:10)
[2018-10-18] MEDS: KETOROLAC TROMETHAMINE INJ/PF 30 MG/1 ML SDV IV PRN ×4 (00:25→21:27)
[2018-10-18 06:43] LABS: HEMATOCRIT 42.7 % (37.9-51.0); MEAN CORPUSCULAR HGB CONC 35.1 g/dL (32.0-36.0); MEAN CORPUSCULAR VOLUME 88 fl (80-97); PLATELET COUNT 146 10^3/uL (150-450); RED BLOOD COUNT 4.83 10^6/uL (4.35-5.55); RED CELL DISTRIBUTION WIDTH 12.8 % (11.5-14.0); WHITE BLOOD COUNT 3.5 10^3/uL (4.0-10.5)
[2018-10-18 07:06] LABS: ALANINE AMINOTRANSFERASE 25 U/L (21-72); ALBUMIN 3.3 g/dL (3.5-5.0); ALKALINE PHOSPHATASE 41 U/L (38-126); ANION GAP 5 (5-19); ASPARTATE AMINO TRANSFERASE 17 U/L (17-59); BILIRUBIN,DIRECT 0.3 mg/dL (0.0-0.4); BILIRUBIN,TOTAL 0.4 mg/dL (0.2-1.3); BLOOD UREA NITROGEN 19 mg/dL (7-20); CALCIUM 9.5 mg/dL (8.4-10.2); CARBON DIOXIDE 25 mmol/L (22-30); CHLORIDE 109 mmol/L (98-107); GLUCOSE 99 mg/dL (75-110); POTASSIUM 4.1 mmol/L (3.6-5.0); SODIUM 139.2 mmol/L (137-145); TOTAL PROTEIN 5.7 g/dL (6.3-8.2)
[2018-10-18] MEDS: RIVAROXABAN 15 MG TABLET PO SCH ×2 (08:33→17:45)
--- NOTE | 2018-10-18 09:11 | PDOC CONSULTATION ---
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 He presented to the ED with a 3 day history of calf pain which progressed. He had sudden, severe right chest pain with pleuritic pain and dyspnea. He was found to have DVT as well as small bilateral PEs with some evidence of necrosis. He is currently on Xarelto 15 mg PO BID. He states that last night, he had severe pain. He tried to walk yesterday, which only made the pain much worse. Toradol has been helping the most for his pain. His mother has Factor V Leiden gene mutation, but patient has no personal history of DVT. Past Medical History Pulmonary Medical History: Reports: Pneumonia Psychiatric Medical History: Reports: Depression, General Anxiety Disorder Past Surgical History Past Surgical History: Reports: Appendectomy, Tonsillectomy, Other - Ear Drum replaced Social History Information Source: Patient Occupation: [employer]. He has 7 children. Lives with . Lives with: Family Smoking Status: Current Every Day Smoker Cigarettes Packs Per Day: 1 Number of Years Smokin Frequency of Alcohol Use: None Hx Recreational Drug Use: No Drugs: Marijuana Hx Prescription Drug Abuse: No - Advance Directive Resuscitation Status: Full Code Family History Family History: CAD Parental Family History Reviewed: Yes - Mother alive with Factor V Leiden. Father age 50 from CHF, DM Children Family History Reviewed: Yes Sibling(s) Family History Reviewed.: Yes Medication/Allergy Home Medications: Alprazolam [Xanax 0.25 mg Tablet] 0.25 mg PO Q12HP PRN 10/15/18 Metoprolol Succinate [Toprol Xl] 50 mg PO DAILY 10/15/18 Ranitidine HCl [Zantac 150 mg Tablet] 150 mg PO Q12A 10/15/18 Allergies/Adverse Reactions: Penicillins Allergy (Verified 10/15/18 12:59) Difficulty breathing Review of Systems Constitutional: PRESENT: headache(s) Eyes: ABSENT: visual disturbances Ears: ABSENT: hearing changes Nose, Mouth, and Throat: ABSENT: sore throat Cardiovascular: PRESENT: chest pain, dyspnea on exertion Respiratory: PRESENT: cough Gastrointestinal: PRESENT: constipation. ABSENT: nausea Genitourinary: ABSENT: dysuria Musculoskeletal: PRESENT: other - Calf pain Integumentary: PRESENT: rash - between fingers Neurological: ABSENT: dizziness, weakness Psychiatric: PRESENT: anxiety Hematologic/Lymphatic: ABSENT: easy bleeding Physical Exam Vital Signs: Temp Pulse Resp BP Pulse Ox 97.8 F 55 L 17 125/78 96 10/17/18 23:00 10/17/18 23:00 10/17/18 23:00 10/17/18 23:00 10/17/18 23:00 Intake & Output 10/17/18 10/18/18 10/19/18 06:59 06:59 06:59 Intake Total 2715 1200 Balance 2715 1200 Weight 119.5 kg 115.8 kg General appearance: PRESENT: well-developed, well-nourished Exam: Muscular, 43 year old male. Eye exam: PRESENT: conjunctiva pink, EOMI Mouth exam: PRESENT: tongue midline Neck exam: ABSENT: lymphadenopathy, tenderness Respiratory exam: PRESENT: wheezes Cardiovascular exam: PRESENT: RRR. ABSENT: systolic murmur GI/Abdominal exam: PRESENT: soft. ABSENT: organolmegaly, tenderness Extremities exam: ABSENT: pedal edema Musculoskeletal exam: PRESENT: normal inspection Neurological exam: PRESENT: alert, awake, oriented to person, oriented to place, oriented to time, oriented to situation Psychiatric exam: PRESENT: anxious, appropriate affect Focused psych exam: ABSENT: restlessness Skin exam: PRESENT: other - tattoos throughout. Results Laboratory Results: 10/18/18 06:02 10/18/18 06:02 10/18/18 10/18/18 06:02 06:02 WBC 3.5 L RBC 4.83 Hgb 15.0 Hct 42.7 MCV 88 MCH 31.0 MCHC 35.1 RDW 12.8 Plt Count 146 L Sodium 139.2 Potassium 4.1 Chloride 109 H Carbon Dioxide 25 Anion Gap 5 BUN 19 Creatinine 1.03 Est GFR ( Amer) > 60 Est GFR (Non-Af Amer) > 60 Glucose 99 Calcium 9.5 Magnesium 2.1 Total Bilirubin 0.4 AST 17 ALT 25 Alkaline Phosphatase 41 Total Protein 5.7 L Albumin 3.3 L 10/15/18 10/15/18 13:32 13:32 Creatine Kinase 47 L CK-MB (CK-2) < 0.22 Troponin I < 0.012 Impressions: Chest X-Ray 10/15/18 13:08 IMPRESSION: Probable pulmonary infarct in the left lower lobe Chest/Abdomen CTA 10/15/18 15:55 IMPRESSION: Multiple segmental and subsegmental bilateral pulmonary emboli, as above. Small wedge-shaped left upper lobe opacity and small bilateral upper lobe ground-glass opacities, as above, likely represent small infarcts. Status: Image reviewed by me Assessment & Plan - Diagnosis (1) Acute bilateral pulmonary embolism Is this a current diagnosis for this admission?: Yes Plan: I spent 45 minutes with patient and discussing risk factors, possible causes, and treatment of DVT/PE. I agree with Xarelto 15 mg BID x 3 weeks, then 20 mg daily. I will be happy to follow him in my office for this and discuss length of treatment at a later time. (2) Family history of factor V Leiden mutation Is this a current diagnosis for this admission?: Yes Plan: I will test for Prothrombin gene mutation, Factor V Leiden, Lupus anticoagulant, antiphospholipid Ab, and anticardiolipid Ab. (3) Chest pain Qualifiers: Chest pain type: chest pain on breathing Qualified Code(s): R07.1 - Chest pain on breathing; R07.81 - Pleurodynia Is this a current diagnosis for this admission?: Yes Plan: Secondary to the PE. We discussed medications for this. I agree with Xanax and Toradol. May consider Celebrex on discharge. He agrees that the narcotics do not work as well. We discussed the fact that it may take several weeks for this pain to improve. (4) Anxiety Is this a current diagnosis for this admission?: Yes Plan: Continue reassurance and Xanax for now. (5) Constipation Is this a current diagnosis for this admission?: Yes Plan: Will add Miralax to the stool softeners, PRN (6) Tobacco dependence Is this a current diagnosis for this admission?: Yes Plan: We discussed this in detail. He understands the importance of quitting. He will try. - Plan Summary Plan Summary: I will continue to follow him.
[2018-10-18] MEDS: DOCUSATE SODIUM 100 MG CAPSULE PO SCH (10:01)
[2018-10-18] MEDS: METOPROLOL SUCCINATE 50 MG TAB.SR.24H PO SCH (10:02)
[2018-10-18] MEDS: FAMOTIDINE 20 MG TABLET PO SCH ×2 (10:02→21:29)
[2018-10-18] MEDS: NICOTINE 21 MG/24 HR PATCH.TD24 TD SCH (10:02)
[2018-10-18] MEDS: METOPROLOL TARTRATE 50 MG TABLET PO SCH (10:02)
[2018-10-18] MEDS: ALPRAZOLAM 0.5 MG TABLET PO PRN ×2 (10:55→17:49)
[2018-10-18] MEDS ORDERED: POLYETHYLENE GLYCOL 3350 POWDER 17 GM/1 PACKET PO PRN (10:56)
--- NOTE | 2018-10-18 12:21 | PDOC PROGRESS REPORT ---
Subjective Progress Note for:: 10/18/18 Subjective:: 43 year old male patient with no significant past medical history except for tobacco dependence presented with chief complaint of chest pain. The patient reports this is a he has been in his usual baseline state of health up until yesterday when he started to have sharp nonradiating right side chest pain which is precipitated by cough and deep breathing. He CT scan of the chest with contrast revealed bilateral PE and his Doppler ultrasound also positive left leg DVT. Patient has been on Lovenox and will transition him later to Eliquis. This morning I seen patient resting in bed. He reports this his cough is subsiding but the chest pain is still there. His vital signs are stable. [id number]-old male admitted with bilateral PE and left lower lytic DVT he is on Percocet 5 325 mg every 4 as needed and also tramadol is complaining of se lyn pains and rest right side of the chest also pain in the left leg requesting increasing doses of Percocet. Is also given the history of DVTs involving her mom, she also has Gavino filter. Family is requesting for hematology consult. No acute events in the last 24 hours patient is afebrile. [id number]-deun-old male admitted for left lower leg DVT and bilateral pulmonary emboli. Lovenox was discontinued yesterday and started on Xarelto 15 mg p.o. twice daily. Hematology consult was done. No acute events in the last 24 hours. Patient is afebrile. Comfortable in the sleeping in the bed communicating very well. Reason For Visit: BILATERAL PULMONARY EMBOLISM. AND LEFT LEG DVT. Physical Exam Vital Signs: Temp Pulse Resp BP Pulse Ox 97.8 F 55 L 17 125/78 96 10/17/18 23:00 10/17/18 23:00 10/17/18 23:00 10/17/18 23:00 10/17/18 23:00 Intake & Output 10/17/18 10/18/18 10/19/18 06:59 06:59 06:59 Intake Total 2715 1200 Balance 2715 1200 Weight 119.5 kg 115.8 kg General appearance: PRESENT: no acute distress, well-developed Head exam: PRESENT: atraumatic Eye exam: PRESENT: PERRLA Neck exam: ABSENT: carotid bruit, JVD, lymphadenopathy, thyromegaly Respiratory exam: PRESENT: clear to auscultation valerie. ABSENT: rales, rhonchi, wheezes Cardiovascular exam: PRESENT: RRR. ABSENT: diastolic murmur, rubs, systolic murmur GI/Abdominal exam: PRESENT: normal bowel sounds, soft. ABSENT: distended, guarding, mass, organolmegaly, rebound, tenderness Extremities exam: PRESENT: full ROM. ABSENT: calf tenderness, clubbing, pedal edema Neurological exam: PRESENT: alert, awake, oriented to person, oriented to place, oriented to time, oriented to situation, CN II-XII grossly intact. ABSENT: motor sensory deficit Psychiatric exam: PRESENT: appropriate affect, normal mood. ABSENT: homicidal ideation, suicidal ideation Results Laboratory Results: 10/18/18 06:02 10/18/18 06:02 10/18/18 10/18/18 06:02 06:02 WBC 3.5 L RBC 4.83 Hgb 15.0 Hct 42.7 MCV 88 MCH 31.0 MCHC 35.1 RDW 12.8 Plt Count 146 L Sodium 139.2 Potassium 4.1 Chloride 109 H Carbon Dioxide 25 Anion Gap 5 BUN 19 Creatinine 1.03 Est GFR ( Amer) > 60 Est GFR (Non-Af Amer) > 60 Glucose 99 Calcium 9.5 Magnesium 2.1 Total Bilirubin 0.4 AST 17 ALT 25 Alkaline Phosphatase 41 Total Protein 5.7 L Albumin 3.3 L 10/15/18 10/15/18 13:32 13:32 Creatine Kinase 47 L CK-MB (CK-2) < 0.22 Troponin I < 0.012 Impressions: Chest X-Ray 10/15/18 13:08 IMPRESSION: Probable pulmonary infarct in the left lower lobe Chest/Abdomen CTA 10/15/18 15:55 IMPRESSION: Multiple segmental and subsegmental bilateral pulmonary emboli, as above. Small wedge-shaped left upper lobe opacity and small bilateral upper lobe ground-glass opacities, as above, likely represent small infarcts. Assessment and Plan - Diagnosis (1) Acute bilateral pulmonary embolism Is this a current diagnosis for this admission?: Yes Plan: We will transition him to Eliquis. 10/[id number]-mtjr-old male admitted with bilateral pulmonary embolism on Lovenox 110 mg every 12 hours it was changed to Xarelto 15 mg p.o. twice daily patient is also given the family history of DVTs consultation with Dr. Dow was requested. Pulse oxes 95% on room air. Complaining of bilateral chest pains Percocet was increased to 10/325 mg every 4 as needed. Plan is to continue the present management. [id number]-ezow-old male admitted for bilateral pulmonary embolism presently on Xarelto 15 mg p.o. twice daily hematology consult was done plan is to continue the present management Family history of DVTs present. Dr. Duenas is doing the further workup. (2) Obesity (BMI 30.0-34.9) Is this a current diagnosis for this admission?: Yes Plan: Patient advised to do lifestyle modification. 08/2018-patient BMI is more than 35. Diet exercise weight loss lifestyle modifications are discussed with the patient. Dietary consult was requested. (3) Tobacco dependence Is this a current diagnosis for this admission?: Yes (5) Chest pain Qualifiers: Chest pain type: chest pain on breathing Qualified Code(s): R07.1 - Chest pain on breathing; R07.81 - Pleurodynia Is this a current diagnosis for this admission?: Yes Plan: 10/18/2018-patient came in with complaints of chest pains probably secondary to bilateral pulmonary embolism no complaints of chest pain today is getting Per cocets and IV Toradol on as needed basis. Plan is to continue the present management. - Time Time Spent with patient: 15-24 minutes Smoking Cessation Education: over 10 minutes Anticipated discharge: Home
--- NOTE | 2018-10-18 18:48 | XCELERA REPORT ---
[address] [address] Transthoracic Echocardiogram Report Name: SUE CAPPS Age: 43 yrs Gender: Male : 1975 Patient Status: Inpatient Patient Location: [address] [place] [address] Study Date: 10/18/2018 11:20 AM Height: 72 in Weight: 225 lb BSA: 2.2 m2 Procedure: A complete two-dimensional transthoracic echocardiogram was performed (2D, M-mode, spectral and color flow Doppler). The study was technically adequate with some images being suboptimal in quality. Reason For Study: Pulmonary Embolism Ordering Physician: NA ZAVALA Performed By: Ling Villasenor Interpretation Summary The left ventricular ejection fraction is normal. There is borderline concentric left ventricular hypertrophy. Doppler measurements suggest impaired left ventricular relaxation, which is associated with grade I/IV or mild diastolic dysfunction The left ventricle is grossly normal size. Wall motion cannot be accurately commented on, but no definite regional wall motion abnormalities noted. The right ventricular systolic function is normal. The left atrial size is normal. The right atrium is normal in size There is a trace amount of mitral regurgitation There is no mitral valve stenosis. There is no aortic valve stenosis No aortic regurgitation is present. There is a trace or physiologic amount of tricuspid regurgitation Tricuspid regurgitation jet envelope not well defined to measure RV systolic pressure accurately. The pulmonic valve is not well visualized. The aortic root is not well visualized but is probably normal size. The inferior vena cava appeared normal and decreased > 50% with respiration (RAP 5-10 mmHg) There is no pericardial effusion. MMode/2D Measurements & Calculations RVDd: 3.8 cm LVIDd: 5.5 cm FS: 40.1 % Ao root diam: 3.2 cm IVSd: 0.86 cm LVIDs: 3.3 cm EDV(Teich): 144.9 ml Ao root area: 8.2 cm2 LVPWd: 1.0 cm ESV(Teich): 43.2 ml EF(Teich): 70.2 % Doppler Measurements & Calculations MV E max sary: MV dec slope: Ao V2 max: LV V1 max P.1 cm/sec 367.5 cm/sec2 125.1 cm/sec 3.8 mmHg MV A max sary: MV dec time: 0.20 secAo max PG: LV V1 max: 79.8 cm/sec 6.3 mmHg 97.6 cm/sec MV E/A: 0.93 PA V2 max: 71.2 cm/sec PA max P.0 mmHg Left Ventricle The left ventricle is grossly normal size. There is borderline concentric left ventricular hypertrophy. The left ventricular ejection fraction is normal. Doppler measurements suggest impaired left ventricular relaxation, which is associated with grade I/IV or mild diastolic dysfunction. Wall motion cannot be accurately commented on, but no definite regional wall motion abnormalities noted. Right Ventricle The right ventricle is grossly normal size. There is normal right ventricular wall thickness. The right ventricular systolic function is normal. Atria The right atrium is normal in size. The left atrial size is normal. Interarterial septum not well visualized and not well dopplered. Cannot comment on ASD/PFO presence. Mitral Valve The mitral valve is grossly normal. There is no mitral valve stenosis. There is a trace amount of mitral regurgitation. Aortic Valve The aortic valve is grossly normal. There is no aortic valve stenosis. No aortic regurgitation is present. Tricuspid Valve The tricuspid valve is not well visualized, but is grossly normal. There is no tricuspid stenosis. There is a trace or physiologic amount of tricuspid regurgitation. Tricuspid regurgitation jet envelope not well defined to measure RV systolic pressure accurately. Pulmonic Valve The pulmonic valve is not well visualized. Great Vessels The aortic root is not well visualized but is probably normal size. The inferior vena cava appeared normal and decreased > 50% with respiration (RAP 5-10 mmHg). Effusions There is no pericardial effusion. : NA ZAVALA > Rena Toro
[2018-10-19] MEDS: OXYCODONE-ACETAMINOPHEN 5-325 MG TABLET PO PRN ×2 (00:02→12:54)
[2018-10-19] MEDS: ALPRAZOLAM 0.5 MG TABLET PO PRN ×3 (01:41→21:44)
--- NOTE | 2018-10-19 08:00 | PDOC PROGRESS REPORT ---
Subjective Progress Note for:: 10/19/18 Subjective:: Patient states that he was able to walk some yesterday, but pain and fatigue are getting worse instead of better. Yesterday was his worst day yet. ROS: Some stool. No dyspnea, but fatigue on exertion. pain is the same. Reason For Visit: BILATERAL PULMONARY EMBOLISM. AND LEFT LEG DVT. Physical Exam Vital Signs: Temp Pulse Resp BP Pulse Ox 98.2 F 69 17 133/77 H 94 10/18/18 23:59 10/18/18 23:59 10/18/18 23:59 10/18/18 23:59 10/18/18 23:59 Intake & Output 10/18/18 10/19/18 10/20/18 06:59 06:59 06:59 Intake Total 1200 1026 Balance 1200 1026 Weight 115.8 kg 113.5 kg General appearance: PRESENT: well-developed, well-nourished Head exam: PRESENT: normocephalic Respiratory exam: PRESENT: unlabored Extremities exam: ABSENT: pedal edema Neurological exam: PRESENT: alert, awake Psychiatric exam: PRESENT: appropriate affect Skin exam: PRESENT: normal color Results Laboratory Results: 10/18/18 06:02 10/18/18 06:02 10/15/18 10/15/18 13:32 13:32 Creatine Kinase 47 L CK-MB (CK-2) < 0.22 Troponin I < 0.012 Impressions: Chest X-Ray 10/15/18 13:08 IMPRESSION: Probable pulmonary infarct in the left lower lobe Chest/Abdomen CTA 10/15/18 15:55 IMPRESSION: Multiple segmental and subsegmental bilateral pulmonary emboli, as above. Small wedge-shaped left upper lobe opacity and small bilateral upper lobe ground-glass opacities, as above, likely represent small infarcts. Assessment & Plan - Diagnosis (1) Acute bilateral pulmonary embolism Is this a current diagnosis for this admission?: Yes Plan: I reviewed results of the ECHO with the patient and . There is no evidence of right heart strain. (2) Family history of factor V Leiden mutation Is this a current diagnosis for this admission?: Yes (3) Chest pain Qualifiers: Chest pain type: chest pain on breathing Qualified Code(s): R07.1 - Chest pain on breathing; R07.81 - Pleurodynia Is this a current diagnosis for this admission?: Yes Plan: He will continue current meds. I have again explained that I do not expect the pain to improve for at least a few weeks. However, it should not be getting worse. (4) Anxiety Is this a current diagnosis for this admission?: Yes Plan: His Xanax has been increased from his regular dose of 0.25 mg to 2 mg. This will need to be tapered as outpatient. (5) Constipation Is this a current diagnosis for this admission?: Yes (6) Tobacco dependence Is this a current diagnosis for this admission?: Yes Plan: Still a concern and may be causing some of his current problems. - Plan Summary Plan Summary: Patient is afraid that the blood clots are getting worse, because pain has not improved. I have reassured him that I do not believe this to be the case. However, there are some people that do not respond to the Xarelto. His antiphospholipid Ab are still pending. I have agreed for patient to stay 1 more day in hospital and if no improvement, will repeat CT chest to make sure no additional findings. Otherwise, he understands that he should be stable for discharge tomorrow.
[2018-10-19] MEDS: RIVAROXABAN 15 MG TABLET PO SCH ×2 (08:49→16:27)
[2018-10-19] MEDS: NICOTINE 21 MG/24 HR PATCH.TD24 TD SCH (08:49)
[2018-10-19] MEDS: DOCUSATE SODIUM 100 MG CAPSULE PO SCH (08:49)
[2018-10-19] MEDS: METOPROLOL TARTRATE 50 MG TABLET PO SCH (08:49)
[2018-10-19] MEDS: FAMOTIDINE 20 MG TABLET PO SCH ×2 (08:50→21:44)
[2018-10-19] MEDS: KETOROLAC TROMETHAMINE INJ/PF 30 MG/1 ML SDV IV PRN ×2 (08:51→16:31)
[2018-10-19] MEDS: METOPROLOL SUCCINATE 50 MG TAB.SR.24H PO SCH (09:20)
--- NOTE | 2018-10-19 15:20 | PDOC PROGRESS REPORT ---
Subjective Progress Note for:: 10/19/18 Subjective:: 43 year old male patient with no significant past medical history except for tobacco dependence presented with chief complaint of chest pain. The patient reports this is a he has been in his usual baseline state of health up until yesterday when he started to have sharp nonradiating right side chest pain which is precipitated by cough and deep breathing. He CT scan of the chest with contrast revealed bilateral PE and his Doppler ultrasound also positive left leg DVT. Patient has been on Lovenox and will transition him later to Eliquis. This morning I seen patient resting in bed. He reports this his cough is subsiding but the chest pain is still there. His vital signs are stable. 10/17/[id number]-rxbc-old male admitted with bilateral PE and left lower lytic DVT he is on Percocet 5 325 mg every 4 as needed and also tramadol is complaining of se lyn pains and rest right side of the chest also pain in the left leg requesting increasing doses of Percocet. Is also given the history of DVTs involving her mom, she also has Gavino filter. Family is requesting for hematology consult. No acute events in the last 24 hours patient is afebrile. 10/18/[id number]-mmit-old male admitted for left lower leg DVT and bilateral pulmonary emboli. Lovenox was discontinued yesterday and started on Xarelto 15 mg p.o. twice daily. Hematology consult was done. No acute events in the last 24 hours. Patient is afebrile. Comfortable in the sleeping in the bed communicating very well. 10/[id number]-lyzr-old male admitted with left lower leg DVT and bilateral pulmonary emboli presently on Xarelto. Dr. Duenas is also following the patient. Patient still complaining that he is not feeling well but is not specific about his complaints. His pulse ox is 98% on room air. Afebrile. No acute events in the last 24 hours. Reason For Visit: BILATERAL PULMONARY EMBOLISM. AND LEFT LEG DVT. Physical Exam Vital Signs: Temp Pulse Resp BP Pulse Ox 97.9 F 63 15 113/65 96 10/19/18 11:17 10/19/18 11:17 10/19/18 11:17 10/19/18 11:17 10/19/18 11:17 Intake & Output 0410/19/18 10/20/18 06:59 06:59 06:59 Intake Total 1200 1026 237 Balance 1200 1026 237 Weight 115.8 kg 113.5 kg General appearance: PRESENT: no acute distress, obese Head exam: PRESENT: atraumatic Eye exam: PRESENT: PERRLA Mouth exam: PRESENT: moist, tongue midline Neck exam: ABSENT: carotid bruit, JVD, lymphadenopathy, thyromegaly Respiratory exam: PRESENT: clear to auscultation valerie. ABSENT: rales, rhonchi, wheezes Cardiovascular exam: PRESENT: RRR. ABSENT: diastolic murmur, rubs, systolic murmur GI/Abdominal exam: PRESENT: normal bowel sounds, soft. ABSENT: distended, guarding, mass, organolmegaly, rebound, tenderness Extremities exam: PRESENT: full ROM. ABSENT: calf tenderness, clubbing, pedal edema Neurological exam: PRESENT: alert, awake, oriented to person, oriented to place, oriented to time, oriented to situation, CN II-XII grossly intact. ABSENT: motor sensory deficit Psychiatric exam: PRESENT: appropriate affect, normal mood. ABSENT: homicidal ideation, suicidal ideation Results Laboratory Results: 10/18/18 06:02 10/18/18 06:02 10/15/18 10/15/18 13:32 13:32 Creatine Kinase 47 L CK-MB (CK-2) < 0.22 Troponin I < 0.012 Impressions: Chest X-Ray 10/15/18 13:08 IMPRESSION: Probable pulmonary infarct in the left lower lobe Chest/Abdomen CTA 10/15/18 15:55 IMPRESSION: Multiple segmental and subsegmental bilateral pulmonary emboli, as above. Small wedge-shaped left upper lobe opacity and small bilateral upper lobe ground-glass opacities, as above, likely represent small infarcts. Assessment and Plan - Diagnosis (1) Acute bilateral pulmonary embolism Is this a current diagnosis for this admission?: Yes Plan: We will transition him to Eliquis. 10/17/[id number]-bfry-old male admitted with bilateral pulmonary embolism on Lovenox 110 mg every 12 hours it was changed to Xarelto 15 mg p.o. twice daily patient is also given the family history of DVTs consultation with Dr. Dow was requested. Pulse oxes 95% on room air. Complaining of bilateral chest pains Percocet was increased to 10/325 mg every 4 as needed. Plan is to continue the present management. 10/18/[id number]-whgo-old male admitted for bilateral pulmonary embolism presently on Xarelto 15 mg p.o. twice daily hematology consult was done plan is to continue the present management Family history of DVTs present. Dr. Duenas is doing the further workup. 10/19/[id number]-mbil-old male admitted with bilateral pulmonary emboli CT of the chest on admission shows multiple segmental and subsegmental emboli. CT also indicates small wedge-shaped opacity in the left upper lobe and small bilateral upper lobe opacities representing small infarcts. Is presently on Xarelto 15 mg p.o. twice a day. Hematology consult was done. (2) Obesity (BMI 30.0-34.9) Is this a current diagnosis for this admission?: Yes Plan: Patient advised to do lifestyle modification. 08/2018-patient BMI is more than 35. Diet exercise weight loss lifestyle modifications are discussed with the patient. Dietary consult was requested. (3) Tobacco dependence Is this a current diagnosis for this admission?: Yes Plan: Patient smokes a pack a day. I counseled and encouraged him to quit smoking. And I offered him nicotine patch and he is agreed. 10/17/2018-patient has history of chronic smoking he is on nicotine patch smoking counseling was provided again for more than 10 minutes. (4) Chest pain Is this a current diagnosis for this admission?: Yes Plan: 10/19/2018-patient came in with complaints of chest pains most likely secondary to pulmonary embolism. Chest pain is resolved now. (5) Chest pain Qualifiers: Chest pain type: chest pain on breathing Qualified Code(s): R07.1 - Chest pain on breathing; R07.81 - Pleurodynia Is this a current diagnosis for this admission?: Yes (6) CHF (congestive heart failure) Is this a current diagnosis for this admission?: No Plan: 10/19/2018-echocardiogram was done as per hematology recommendations left ventricular systolic function is normal but the diastolic function indicates grade 2-3 dysfunction probably patient has chronic diastolic heart failure. Pa tient is euvolemic - Time Time Spent with patient: 15-24 minutes Medications reviewed and adjusted accordingly: Yes Anticipated discharge: Home
[2018-10-19] MEDS: HYDROMORPHONE HCL INJ/PF 2 MG/ML AMPULE IV PRN ×2 (17:39→21:43)
[2018-10-20 06:09] LABS: HEMATOCRIT 42.4 % (37.9-51.0); HEMOGLOBIN 15.2 g/dL (13.5-17.0); MEAN CORPUSCULAR HEMOGLOBIN 31.4 pg (27.0-33.4); MEAN CORPUSCULAR HGB CONC 35.8 g/dL (32.0-36.0); MEAN CORPUSCULAR VOLUME 88 fl (80-97); PLATELET COUNT 158 10^3/uL (150-450); RED BLOOD COUNT 4.84 10^6/uL (4.35-5.55); RED CELL DISTRIBUTION WIDTH 12.7 % (11.5-14.0); WHITE BLOOD COUNT 4.2 10^3/uL (4.0-10.5)
[2018-10-20 06:11] LABS: INTERNATIONAL RATION (INR) 1.24; PROTHROMBIN TIME 16.3 SEC (11.4-15.4)
[2018-10-20 07:05] LABS: ALANINE AMINOTRANSFERASE 67 U/L (21-72); ALBUMIN 3.3 g/dL (3.5-5.0); ALKALINE PHOSPHATASE 40 U/L (38-126); ANION GAP 7 (5-19); ASPARTATE AMINO TRANSFERASE 45 U/L (17-59); BILIRUBIN,DIRECT 0.3 mg/dL (0.0-0.4); BILIRUBIN,TOTAL 0.3 mg/dL (0.2-1.3); BLOOD UREA NITROGEN 19 mg/dL (7-20); CARBON DIOXIDE 24 mmol/L (22-30); CHLORIDE 109 mmol/L (98-107); GLUCOSE 103 mg/dL (75-110); POTASSIUM 4.2 mmol/L (3.6-5.0); SODIUM 139.7 mmol/L (137-145); TOTAL PROTEIN 5.9 g/dL (6.3-8.2)
--- NOTE | 2018-10-20 08:12 | PDOC PROGRESS REPORT ---
Subjective Progress Note for:: 10/20/18 Subjective:: Patient still having pain in the chest and in the left leg. The pain is especially there on the left leg where the clot is. It is controlled by the current pain regimen. I believe he is appropriate for discharge today. I discontinued his CTA of the chest because I explained the rationale behind not reimaging, I explained that even on reimage whether there is less or stable clot burden, it does not change what we do. I also explained that in the future we would not recommend reimaging because sometimes clot and scar tissue can appear the same. He is on a higher dose of Xanax. He is currently getting Dilaudid 1 mg every 4. We will discharge him with Xanax 2 mg twice daily and we will need to titrated down ourselves as an outpatient. He will discharged on oxycodone 10 mg every 6 hours. He will have follow-up with Dr. Funez next week on Tuesday. He will have Xarelto 15 mg twice daily for 21 days. We will given the prescription for the 20 mg daily as an outpatient. I discussed this with the hospitalist team who will be writing for all those scripts. I asked nursing to make the appointment for him for us next week. Reason For Visit: BILATERAL PULMONARY EMBOLISM. AND LEFT LEG DVT. Physical Exam Vital Signs: Temp Pulse Resp BP Pulse Ox 98.5 F 61 15 123/62 95 10/19/18 23:47 10/19/18 23:47 10/19/18 23:47 10/19/18 23:47 10/19/18 23:47 Intake & Output 10/19/18 10/20/18 10/21/18 06:59 06:59 06:59 Intake Total 1026 837 Balance 1026 837 Weight 113.5 kg 114.8 kg General appearance: PRESENT: no acute distress, well-developed, well-nourished Head exam: PRESENT: atraumatic, normocephalic Eye exam: PRESENT: conjunctiva pink, EOMI, PERRLA. ABSENT: scleral icterus Ear exam: PRESENT: normal external ear exam Mouth exam: PRESENT: moist, tongue midline Neck exam: ABSENT: carotid bruit, JVD, lymphadenopathy, thyromegaly Respiratory exam: PRESENT: clear to auscultation valerie. ABSENT: rales, rhonchi, wheezes Cardiovascular exam: PRESENT: RRR. ABSENT: diastolic murmur, rubs, systolic murmur Pulses: PRESENT: normal dorsalis pedis pul Vascular exam: PRESENT: normal capillary refill GI/Abdominal exam: PRESENT: normal bowel sounds, soft. ABSENT: distended, guarding, mass, organolmegaly, rebound, tenderness Rectal exam: PRESENT: deferred Extremities exam: PRESENT: full ROM. ABSENT: calf tenderness, clubbing, pedal edema Neurological exam: PRESENT: alert, awake, oriented to person, oriented to place, oriented to time, oriented to situation, CN II-XII grossly intact. ABSENT: motor sensory deficit Psychiatric exam: PRESENT: appropriate affect, normal mood. ABSENT: homicidal ideation, suicidal ideation Skin exam: PRESENT: dry, intact, warm. ABSENT: cyanosis, rash Results Laboratory Results: 10/20/18 05:47 10/20/18 05:47 10/20/18 10/20/18 05:47 05:47 WBC 4.2 RBC 4.84 Hgb 15.2 Hct 42.4 MCV 88 MCH 31.4 MCHC 35.8 RDW 12.7 Plt Count 158 Sodium 139.7 Potassium 4.2 Chloride 109 H Carbon Dioxide 24 Anion Gap 7 BUN 19 Creatinine 0.86 Est GFR ( Amer) > 60 Est GFR (Non-Af Amer) > 60 Glucose 103 Calcium 9.0 Magnesium 1.9 Total Bilirubin 0.3 AST 45 ALT 67 Alkaline Phosphatase 40 Total Protein 5.9 L Albumin 3.3 L 10/15/18 10/15/18 13:32 13:32 Creatine Kinase 47 L CK-MB (CK-2) < 0.22 Troponin I < 0.012 Impressions: Chest X-Ray 10/15/18 13:08 IMPRESSION: Probable pulmonary infarct in the left lower lobe Chest/Abdomen CTA 10/15/18 15:55 IMPRESSION: Multiple segmental and subsegmental bilateral pulmonary emboli, as above. Small wedge-shaped left upper lobe opacity and small bilateral upper lobe ground-glass opacities, as above, likely represent small infarcts. Assessment & Plan - Diagnosis (1) Bilateral pulmonary embolism Is this a current diagnosis for this admission?: Yes Plan: Plan as above, discharge plan for today. (2) Left leg DVT Qualifiers: Affected thrombotic vein of extremity: tibial Chronicity: acute Qualified Code(s): I82.442 - Acute embolism and thrombosis of left tibial vein Is this a current diagnosis for this admission?: Yes Plan: Plan as above, plan for discharge today - Time Time Spent with patient: 35 or more minutes Disposition: Today had a long discussion with patient and who is at bedside, they voiced understanding and agreement with plan.
[2018-10-20] MEDS: HYDROMORPHONE HCL INJ/PF 2 MG/ML AMPULE IV PRN (08:20)
[2018-10-20] MEDS: RIVAROXABAN 15 MG TABLET PO SCH (08:21)
[2018-10-20] MEDS: ALPRAZOLAM 0.5 MG TABLET PO PRN (08:30)
[2018-10-20] MEDS: METOPROLOL SUCCINATE 50 MG TAB.SR.24H PO SCH (08:37)
[2018-10-20] MEDS: DOCUSATE SODIUM 100 MG CAPSULE PO SCH (09:21)
[2018-10-20] MEDS: FAMOTIDINE 20 MG TABLET PO SCH (09:21)
[2018-10-20] MEDS: NICOTINE 21 MG/24 HR PATCH.TD24 TD SCH (09:22)
[2018-10-20 11:54] VITALS: BP 123/62
--- NOTE | 2018-10-20 13:00 | PDOC DISCHARGE SUMMARY ---
General - Admit/Disc Date/PCP Admission Date/Primary Care Provider: 10/15/18 18:28 Discharge Date: 10/20/18 - Discharge Diagnosis (1) Acute bilateral pulmonary embolism Is this a current diagnosis for this admission?: Yes Summary: We will transition him to Eliquis. 10/17/[id number]-luhi-old male admitted with bilateral pulmonary embolism on Lovenox 110 mg every 12 hours it was changed to Xarelto 15 mg p.o. twice daily patient is also given the family history of DVTs consultation with Dr. Dow was requested. Pulse oxes 95% on room air. Complaining of bilateral chest pains Percocet was increased to 10/325 mg every 4 as needed. Plan is to continue the present management. 10/18/[id number]-[place]-old male admitted for bilateral pulmonary embolism presently on Xarelto 15 mg p.o. twice daily hematology consult was done plan is to continue the present management Family history of DVTs present. Dr. Duenas is doing the further workup. 10/19/[id number]-umzx-old male admitted with bilateral pulmonary emboli CT of the chest on admission shows multiple segmental and subsegmental emboli. CT also indicates small wedge-shaped opacity in the left upper lobe and small bilateral upper lobe opacities representing small infarcts. Is presently on Xarelto 15 mg p.o. twice a day. Hematology consult was done. 10/20/[id number]-ddgy-old male admitted with the bilateral pulmonary embolism invo lving multiple segmental, sub segmental regions. Patient was started initially on Lovenox and switched to Xarelto 15 mg p.o. twice daily he is going home on Xarelto 15 mg p.o. twice daily for the next 21 days. He is going to follow-up with Dr. Duenas as an outpatient. pt vital signs are stable today. (2) Obesity (BMI 30.0-34.9) Is this a current diagnosis for this admission?: Yes Summary: Patient advised to do lifestyle modification. 10/17/2018-patient BMI is more than 35. Diet exercise weight loss lifestyle modifications are discussed with the patient. Dietary consult was requested. 10/20/2018-patient's BMI is more than 35. Dietary consult was provided during the hospital stay. Again today diet exercise lifestyle modifications are discussed with the patient. (3) Tobacco dependence Is this a current diagnosis for this admission?: Yes (4) Chest pain Is this a current diagnosis for this admission?: Yes (5) Chest pain Is this a current diagnosis for this admission?: Yes Summary: 10/20/2018-patient came in with chest pains at the time of admission probably secondary to underlying pulmonary embolism. Chest pain was resolved cardiac workup was negative. (6) CHF (congestive heart failure) Is this a current diagnosis for this admission?: No Summary: 10/19/2018-echocardiogram was done as per hematology recommendations left ventricular systolic function is normal but the diastolic function indicates grade 2-3 dysfunction probably patient has chronic diastolic heart failure. Patient is euvolemic 10/20/2018-echocardiogram shows normal left ventricular systolic function but noticed to have a grade 2/3 diastolic dysfunction. Which probably chronic. (7) Deep venous thrombosis Is this a current diagnosis for this admission?: Yes Summary: 10/20/2018-patient came in with left lower leg pain venous Doppler shows acute DVT. He was discharged home on Xarelto 15 mg p.o. twice daily for 21 days. After completing 21 days course Xarelto will be switched to 20 mg p.o. daily. - Additional Information Resuscitation Status: Full Code Discharge Diet: Cardiac Discharge Activity: Activity As Tolerated Prescriptions: Alprazolam [Xanax] 2 mg PO BID #10 tablet Oxycodone HCl 10 mg PO Q6HP PRN #20 syringe PRN Reason: Rivaroxaban [Xarelto 15 mg Tablet] 15 mg PO BIDBS #42 tablet Home Medications: Metoprolol Succinate [Toprol Xl] 50 mg PO DAILY 10/15/18 Alprazolam [Xanax] 2 mg PO BID #10 tablet 10/20/18 Oxycodone HCl 10 mg PO Q6HP PRN #20 syringe 10/20/18 Rivaroxaban [Xarelto 15 mg Tablet] 15 mg PO BIDBS #42 tablet 10/20/18 History of Present Illness History of Present Illness: SUE CAPPS is a 43 year old male 43 year old male patient with no significant past medical history except for tobacco dependence presented with chief complaint of chest pain. The patient reports this is a he has been in his usual baseline state of health up until yesterday when he started to have sharp nonradiating right side chest pain which is precipitated by cough and deep breathing. Patient also complaining of several days history of left calf swelling pain and tenderness. 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 His venous Doppler is positive for DVT and CT of the chest reported as multiple segmental and subsegmental bilateral pulmonary emboli. Patient denies any fever, chills, palpitation, nausea, vomiting, abdominal pain or change in his bowel habits. No urinary complaints. No dizziness, headache or blurry of vision. Physical Exam Vital Signs: Temp Pulse Resp BP Pulse Ox 97.8 F 71 16 123/62 100 10/20/18 11:34 10/20/18 11:34 10/20/18 11:34 10/20/18 11:34 10/20/18 11:34 Intake & Output 10/19/18 10/20/18 10/21/18 06:59 06:59 06:59 Intake Total 1026 837 237 Balance 1026 837 237 Weight 113.5 kg 114.8 kg General appearance: PRESENT: no acute distress Head exam: PRESENT: atraumatic Eye exam: PRESENT: PERRLA Mouth exam: PRESENT: moist, tongue midline Neck exam: ABSENT: carotid bruit, JVD, lymphadenopathy, thyromegaly Respiratory exam: PRESENT: decreased breath sounds Cardiovascular exam: PRESENT: RRR. ABSENT: diastolic murmur, rubs, systolic murmur GI/Abdominal exam: PRESENT: normal bowel sounds, soft. ABSENT: distended, guarding, mass, organolmegaly, rebound, tenderness Extremities exam: PRESENT: full ROM. ABSENT: calf tenderness, clubbing, pedal edema Neurological exam: PRESENT: alert, awake, oriented to person, oriented to place, oriented to time, oriented to situation, CN II-XII grossly intact. ABSENT: motor sensory deficit Psychiatric exam: PRESENT: appropriate affect, normal mood. ABSENT: homicidal ideation, suicidal ideation Results Laboratory Results: 10/20/18 05:47 10/20/18 05:47 10/20/18 10/20/18 05:47 05:47 WBC 4.2 RBC 4.84 Hgb 15.2 Hct 42.4 MCV 88 MCH 31.4 MCHC 35.8 RDW 12.7 Plt Count 158 Sodium 139.7 Potassium 4.2 Chloride 109 H Carbon Dioxide 24 Anion Gap 7 BUN 19 Creatinine 0.86 Est GFR ( Amer) > 60 Est GFR (Non-Af Amer) > 60 Glucose 103 Calcium 9.0 Magnesium 1.9 Total Bilirubin 0.3 AST 45 ALT 67 Alkaline Phosphatase 40 Total Protein 5.9 L Albumin 3.3 L 10/15/18 10/15/18 13:32 13:32 Creatine Kinase 47 L CK-MB (CK-2) < 0.22 Troponin I < 0.012 Impressions: Chest X-Ray 10/15/18 13:08 IMPRESSION: Probable pulmonary infarct in the left lower lobe Chest/Abdomen CTA 10/15/18 15:55 IMPRESSION: Multiple segmental and subsegmental bilateral pulmonary emboli, as above. Small wedge-shaped left upper lobe opacity and small bilateral upper lobe ground-glass opacities, as above, likely represent small infarcts. Qualifiers - * PATIENT BEING DISCHARGED WITH ANY OF THE FOLLOWING DIAGNOSIS: No VTE patient discharged on overlapping Therapy?: No Plan Discharge Plan: Patient is going home today strongly advised him to follow-up with Dr. Duenas in 1 week time. Time Spent: Less than 30 Minutes
[2018-10-21 07:22] LABS: ANTICARDIOLIPIN IGA AB <9 APL U/mL (0-11); ANTICARDIOLIPIN IGG AB <9 GPL U/mL (0-14); ANTICARDIOLIPIN IGM AB <9 MPL U/mL (0-12)
[2018-10-21 09:37] LABS: DILUTE RUSSELL VIPOR VENOM 165.5 sec (0.0-47.0); DRVVT MIX 96.9 sec (0.0-47.0); HEXAGONAL PHASE PHOSPHOLIPID 8 sec (0-11); PTT-LA 58.5 sec (0.0-51.9); PTT-LA MIX 51.2 sec (0.0-48.9); THROMBIN TIME 16.3 sec (0.0-23.0)
[2018-10-21 10:09] LABS: LUPUS PANEL INTERPRETATION Comment: (.)
== END 2018-10-20 11:52 | disposition home or self-care (01) | DRG 176 ==
LOC: ER 12:57 → EH 18:28 → 5 21:16
PROVIDERS: ADMIT Internal Medicine; ATTEND Internal Medicine
DX: I26.99 Other pulmonary embolism without acute cor pulmonale (principal); I50.32 Chronic diastolic (congestive) heart failure; I82.442 Acute embolism and thrombosis of left tibial vein; E66.9 Obesity, unspecified; Z68.35 Body mass index [BMI] 35.0-35.9, adult; F32.9 Major depressive disorder, single episode, unspecified; F41.1 Generalized anxiety disorder; F17.210 Nicotine dependence, cigarettes, uncomplicated; K59.00 Constipation, unspecified; Z71.6 Tobacco abuse counseling; Z79.01 Long term (current) use of anticoagulants; Z88.0 Allergy status to penicillin; Z82.49 Family history of ischemic heart disease and other diseases of the circulatory system; Z83.2 Family history of diseases of the blood and blood-forming organs and certain disorders involving the immune mechanism
CPT/HCPCS: 36415; 71045; 71275; 80048; 80053; 81001; 81240; 81241; 82550; 82553; 82962; 83036; 83520; 83690; 83735; 84484; 85025; 85027; 85597; 85598; 85610; 85613; 85730; 85732; 86146; 86147; 86148; 86225; 86235; 86849; 93005; 93010; 93306; 93971; 94799; 96374; 96375; 96376; 99291; J1170; J1644; J1650; J1885; J2270; J3490; J7030

== ENCOUNTER 2018-11-24 01:44 | Emergency (ER) | payer MEDICARE ==
[2018-11-24] MEDS ORDERED: ONDANSETRON HCL INJ/PF 4 MG/2 ML SDV IV ONE (02:19)
[2018-11-24] MEDS ORDERED: ASPIRIN 81 MG TABLET, CHEWABLE PO ONE (02:19)
[2018-11-24] MEDS ORDERED: MORPHINE SULFATE 10 MG/ML INJ IV ONE (02:19)
--- NOTE | 2018-11-24 02:21 | ER Document Report ---
ED General - General Chief Complaint: Chest Pain > 30 Stated Complaint: CHEST PAIN Time Seen by Provider: 11/24/18 02:09 Notes: Patient is a 43-year-old male that comes to the emergency, pain does go into his left arm, he started noticing this about 1 PM during the day. He reports a cough, states he has had a cough for several weeks, it is occasionally productive with yellow and green sputum. He denies fever but states he was sweating earlier today. He denies nausea or vomiting. Past medical history includes pulmonary embolism, this was diagnosed just over 5 weeks ago, he follows with Dr. Duenas, he states he is compliant with his Xarelto. Remaining medical history includes anxiety, he takes Xanax for this. TRAVEL OUTSIDE OF THE [place] IN LAST 30 DAYS: No - Related Data Allergies/Adverse Reactions: Penicillins Allergy (Verified 10/15/18 12:59) Difficulty breathing Past Medical History - General Information source: Patient - Social History Smoking Status: Current Every Day Smoker Smoking Education Provided: Yes - <3 min Lives with: Family Family History: CAD - Past Medical History Cardiac Medical History: Reports: Hx DVT, Hx Pulmonary Embolism Pulmonary Medical History: Reports: Hx Pneumonia Renal/ Medical History: Denies: Hx Peritoneal Dialysis Psychiatric Medical History: Reports: Hx Depression Past Surgical History: Reports: Hx Appendectomy, Hx Tonsillectomy, Other - Ear Drum replaced - Immunizations Hx Diphtheria, Pertussis, Tetanus Vaccination: Yes Review of Systems - Review of Systems Constitutional: No symptoms reported EENT: No symptoms reported Cardiovascular: See HPI Respiratory: See HPI Gastrointestinal: No symptoms reported Genitourinary: No symptoms reported Male Genitourinary: No symptoms reported Musculoskeletal: No symptoms reported Skin: No symptoms reported Hematologic/Lymphatic: No symptoms reported Neurological/Psychological: No symptoms reported Physical Exam - Vital signs Vitals: Temp Pulse Resp BP Pulse Ox 97.6 F 61 18 145/78 H 97 11/24/18 01:51 11/24/18 01:51 11/24/18 01:51 11/24/18 01:51 11/24/18 01:51 - Notes Notes: GENERAL: Alert, interacts well. No acute distress. HEAD: Normocephalic, atraumatic. EYES: Pupils equal, round, and reactive to light. Extraocular movements intact. ENT: Oral mucosa moist, tongue midline. Oropharynx unremarkable. Airway patent. NECK: Full range of motion. Supple. Trachea midline. LUNGS: Clear to auscultation bilaterally, no wheezes, rales, or rhonchi. No respiratory distress. HEART: Regular rate and rhythm. No murmur ABDOMEN: Soft, non-tender. Non-distended. Bowel sounds present in all 4 quadrants. GENITOURINARY: Deferred EXTREMITIES: Moves all 4 extremities spontaneously. No edema, normal radial and dorsalis pedis pulses bilaterally. No cyanosis. BACK: no cervical, thoracic, lumbar midline tenderness. No saddle anesthesia, normal distal neurovascular exam. NEUROLOGICAL: Alert and oriented x3. Normal speech. PSYCH: Normal affect, normal mood. SKIN: There is a small healing 1 cm horizontal wound with minimal erythema around it but no tenderness located at the medial aspect of the side of the foot at the MTP of the great toe. Unremarkable foot exam otherwise, unremarkable skin exam otherwise. Course - Re-evaluation Re-evalutation: EKG with no significant change. Chest x-ray unremarkable. Patient has some bradycardia but review previous records shows that this is not new. CBC un remarkable, chemistry unremarkable, troponin is negative. Patient is not hypoxic, tachycardic, or distress. Patient is rubbing his chest wall on my evaluation although he does not have any specific reproducible tenderness. He does have an occasional cough with reported sputum production. He also has a small healing area on his right foot where [place]. Tetanus is not up-to-date, this was updated. Discussed with patient. Initially plan was to repeat troponin and if this is unremarkable he will follow-up with his supervisor [employer]. I do not suspect treatment failure because patient does not have any shortness of breath, tachypnea, tachycardia, hypoxia, and his troponin is negative. No evidence of right heart strain. I do not suspect pneumonia either. Patient call me back into the room. He admits there is an anxiety component with his symptoms. He is already on treatment with this for Xanax, he denies SI or HI. He is asking to leave. He requests to be treated with antibiotic for possible underlying pneumonia, decision was made to do this and to cover him for vibrio species with doxycycline. He has had over 8 hours of symptoms from onset, troponin negative, low suspicion of ACS. Discussed follow-up and strict return precautions with patient. Patient states understanding and agreement. - Vital Signs Vital signs: Temp Pulse Resp BP Pulse Ox 97.6 F 61 16 98/57 L 94 11/24/18 01:51 11/24/18 01:51 11/24/18 04:01 11/24/18 04:01 11/24/18 04:01 - Laboratory Result Diagrams: 11/24/18 02:27 11/24/18 02:27 Laboratory results interpreted by me: 11/24/18 11/24/18 02:27 02:27 Seg Neutrophils % 37.5 L Lymphocytes % 49.1 H Total Protein 6.2 L - EKG Interpretation by Me Additional EKG results interpreted by me: EKG shows sinus bradycardia at a rate of 51. No T wave inversions or ST segment changes in consecutive leads. No significant change from prior. Discharge - Discharge Clinical Impression: Cough, Wound of foot, Anxiety Chest pain Qualifiers: Chest pain type: unspecified Qualified Code(s): R07.9 - Chest pain, unspecified Condition: Stable Disposition: HOME, SELF-CARE Additional Instructions: Your work-up is reassuring at this time. We are covering you with doxycycline because of your cough and recent development of symptoms along with your foot wound from the shell. Your tetanus has been updated. Follow-up with your primary care provider for additional evaluation and management of pain and anxiety. Return if you worsen including difficulty breathing, severe worsening pain, fever/chills, vomiting, swelling/redness/pain of the foot or any other concerning symptoms. Prescriptions: Doxycycline Hyclate 100 mg PO BID #14 capsule
[2018-11-24 02:51] LABS: ABSOLUTE EOSINOPHILS # (AUTO) 0.1 10^3/uL (0.0-0.6); ABSOLUTE LYMPHOCYTES (AUTO) 2.4 10^3/uL (0.5-4.7); ABSOLUTE MONOCYTES (AUTO) 0.5 10^3/uL (0.1-1.4); ABSOLUTE NEUT (AUTO) 1.8 10^3/uL (1.7-8.2); BASOPHILS % (AUTO) 0.4 % (0-2); EOSINOPHILS % (AUTO) 2.3 % (0-6); HEMATOCRIT 46.7 % (37.9-51.0); LYMPHOCYTES % (AUTO) 49.1 % (13-45); MEAN CORPUSCULAR HEMOGLOBIN 30.4 pg (27.0-33.4); MEAN CORPUSCULAR HGB CONC 34.2 g/dL (32.0-36.0); MEAN CORPUSCULAR VOLUME 89 fl (80-97); MONOCYTES % (AUTO) 10.7 % (3-13); PLATELET COUNT 162 10^3/uL (150-450); RED BLOOD COUNT 5.26 10^6/uL (4.35-5.55); RED CELL DISTRIBUTION WIDTH 13.2 % (11.5-14.0); SEGMENTED NEUTROPHILS % (AUTO) 37.5 % (42-78); TOTAL CELLS COUNTED % (AUTO) 100 %; WHITE BLOOD COUNT 4.8 10^3/uL (4.0-10.5)
--- NOTE | 2018-11-24 03:00 | RADIOLOGY REPORT (SQ) ---
EXAM DESCRIPTION: [facility]: XR CHEST 1 VIEW CLINICAL HISTORY: 43 years Male, chest pain COMPARISON: 10/15/2018 FINDINGS: Lungs are clear, with no focal infiltrate, pneumothorax, or pleural effusion. Mediastinum is within normal limits for this positioning. Bony structures are unremarkable. IMPRESSION: No acute pulmonary findings.
[2018-11-24 03:11] LABS: ALANINE AMINOTRANSFERASE 44 U/L (21-72); ALBUMIN 3.8 g/dL (3.5-5.0); ALKALINE PHOSPHATASE 42 U/L (38-126); ANION GAP 7 (5-19); ASPARTATE AMINO TRANSFERASE 20 U/L (17-59); BILIRUBIN,DIRECT 0.2 mg/dL (0.0-0.4); BILIRUBIN,TOTAL 0.5 mg/dL (0.2-1.3); BLOOD UREA NITROGEN 14 mg/dL (7-20); CALCIUM 9.5 mg/dL (8.4-10.2); CARBON DIOXIDE 28 mmol/L (22-30); CHLORIDE 107 mmol/L (98-107); GLUCOSE 94 mg/dL (75-110); POTASSIUM 4.3 mmol/L (3.6-5.0); SODIUM 142.3 mmol/L (137-145); TOTAL PROTEIN 6.2 g/dL (6.3-8.2)
[2018-11-24 04:34] VITALS: BP 98/57
[2018-11-24] MEDS ORDERED: DOXYCYCLINE HYCLATE 100 MG TABLET PO ONE (04:34)
[2018-11-24] MEDS ORDERED: DIPH/PERTUSS(ACELL)/TETANUS VAC/PF 0.5 ML SYR (>=10YO) IM ONE (04:34)
--- NOTE | 2018-11-24 22:36 | EKG REPORT ---
SEVERITY:- ABNORMAL ECG - SINUS RHYTHM NONSPECIFIC INTRAVENTRICULAR CONDUCTION DELAY : Confirmed by: Melissa Szymanski MD 24-Nov-2018 22:35:40
== END 2018-11-24 04:47 | disposition home or self-care (01) ==
LOC: ER 01:44
DX: F41.9 Anxiety disorder, unspecified (principal); S91.301A Unspecified open wound, right foot, initial encounter; R05 Cough; W26.8XXA Contact with other sharp object(s), not elsewhere classified, initial encounter; R07.9 Chest pain, unspecified; M79.602 Pain in left arm; F17.200 Nicotine dependence, unspecified, uncomplicated; Z86.718 Personal history of other venous thrombosis and embolism; Z88.0 Allergy status to penicillin; Z86.711 Personal history of pulmonary embolism; Z23 Encounter for immunization
CPT/HCPCS: 99284; 36415; 85025; 80053; 84484; 71045; 90715; 93005; 93010; A9270 ×2; J2270; J2405

== ENCOUNTER 2018-12-16 23:11 | Emergency (ER) | payer MEDICARE ==
--- NOTE | 2018-12-16 23:45 | EKG REPORT ---
SEVERITY:- ABNORMAL ECG - SINUS RHYTHM INCOMPLETE RIGHT BUNDLE BRANCH BLOCK : Confirmed by: Melissa Szymanski MD 16-Dec-2018 23:43:12
[2018-12-17] MEDS ORDERED: ASPIRIN 81 MG TABLET, CHEWABLE PO ONE (00:33)
[2018-12-17 01:06] LABS: ABSOLUTE EOSINOPHILS # (AUTO) 0.1 10^3/uL (0.0-0.6); ABSOLUTE LYMPHOCYTES (AUTO) 1.8 10^3/uL (0.5-4.7); ABSOLUTE MONOCYTES (AUTO) 0.7 10^3/uL (0.1-1.4); ABSOLUTE NEUT (AUTO) 3.1 10^3/uL (1.7-8.2); BASOPHILS % (AUTO) 0.4 % (0-2); EOSINOPHILS % (AUTO) 1.4 % (0-6); HEMATOCRIT 48.2 % (37.9-51.0); HEMOGLOBIN 16.8 g/dL (13.5-17.0); LYMPHOCYTES % (AUTO) 31.5 % (13-45); MEAN CORPUSCULAR HEMOGLOBIN 30.6 pg (27.0-33.4); MEAN CORPUSCULAR HGB CONC 34.9 g/dL (32.0-36.0); MEAN CORPUSCULAR VOLUME 88 fl (80-97); MONOCYTES % (AUTO) 12.5 % (3-13); PLATELET COUNT 213 10^3/uL (150-450); RED BLOOD COUNT 5.48 10^6/uL (4.35-5.55); RED CELL DISTRIBUTION WIDTH 13.2 % (11.5-14.0); SEGMENTED NEUTROPHILS % (AUTO) 54.2 % (42-78); TOTAL CELLS COUNTED % (AUTO) 100 %; WHITE BLOOD COUNT 5.6 10^3/uL (4.0-10.5)
[2018-12-17 01:27] LABS: ALANINE AMINOTRANSFERASE 32 U/L (21-72); ALBUMIN 4.5 g/dL (3.5-5.0); ALKALINE PHOSPHATASE 53 U/L (38-126); ANION GAP 12 (5-19); ASPARTATE AMINO TRANSFERASE 17 U/L (17-59); BILIRUBIN,DIRECT 0.2 mg/dL (0.0-0.4); BILIRUBIN,TOTAL 0.6 mg/dL (0.2-1.3); BLOOD UREA NITROGEN 18 mg/dL (7-20); CALCIUM 9.8 mg/dL (8.4-10.2); CARBON DIOXIDE 28 mmol/L (22-30); CHLORIDE 102 mmol/L (98-107); CREATINE KINASE 59 U/L (55-170); GLUCOSE 100 mg/dL (75-110); POTASSIUM 4.5 mmol/L (3.6-5.0); SODIUM 141.8 mmol/L (137-145); TOTAL PROTEIN 7.4 g/dL (6.3-8.2)
[2018-12-17 01:39] LABS: CREATINE KINASE MB 0.23 ng/mL (<4.55)
[2018-12-17 01:41] VITALS: BP 118/76
[2018-12-17 01:41] LABS: TROPONIN I < 0.012 ng/mL
--- NOTE | 2018-12-17 01:49 | RADIOLOGY REPORT (SQ) ---
EXAM DESCRIPTION: [facility]: XR CHEST 1 VIEW CLINICAL HISTORY: 43 years Male, chest pain COMPARISON: 11/24/2018 FINDINGS: Lungs are clear, with no focal infiltrate, pneumothorax, or pleural effusion. Mediastinum is within normal limits for this positioning. Bony structures are unremarkable. IMPRESSION: 1. No acute pulmonary findings.
--- NOTE | 2018-12-17 01:52 | RADIOLOGY REPORT (SQ) ---
EXAM DESCRIPTION: CT MAXILLOFACIAL WITH IV CONTRAST COMPLETED DATE/TME: 12/17/2018 00:33 CLINICAL HISTORY: 43 years Male, poss abcess Comparison: None. Technique: No contrast. Coronal and sagittal reformat. This exam was performed according to our departmental dose-optimization program, which includes automated exposure control, adjustment of the mA and/or kV according to patient size and/or use of iterative reconstruction technique.[facility]: Dose Right [facility]: CareDose [facility]: Dose Right [facility]: Teradose 4D [facility]: [employer] LIMITATIONS: None Findings: 1.9 cm lytic lesion of the left paracentral anterior maxilla associated with components of the left central incisor/prosthesis, and left canine bruits. Partially edentulous. Moderate soft tissue swelling at the anterior aspect Small cortical disruption and moderate adjacent soft tissue swelling. No drainable abscess or fluid collection. Moderate to severe left maxillary mucosal thickening. Facial bones including orbits, nasal bone, paranasal sinuses, and pterygoid plates appear otherwise intact. Unremarkable partially visualized inferior cranium, temporal bone, and upper neck. IMPRESSION: 1.9 cm periapical rarefying osteitis/abscess of the left paracentral anterior maxilla. Adjacent soft tissue cellulitis and left maxillary sinusitis. Differential etiologies include infectious, inflammatory, and neoplastic processes.
[2018-12-17 03:10] LABS: FREE T3 4.25 pg/mL (2.77-5.27); FREE T4 (FREE THYROXINE) 0.98 ng/dL (0.78-2.19)
--- NOTE | 2018-12-17 07:24 | ER Document Report ---
Entered by CLARISSE BOB SCRIBE 12/17/18 0120 Acting as scribe for:MOY VALDERRAMA DO ED General - General Chief Complaint: Chest Pain Stated Complaint: CHEST PAIN Time Seen by Provider: 12/16/18 23:51 Primary Care Provider: [facility] [Provider Group] - Follow up as needed JEREMIAH GUPTA MD [ACTIVE STAFF] - Follow up as needed BENTLEY KHAN DDS [ACTIVE STAFF] - Follow up as needed EFRAIN RACHEL MD [NO LOCAL MD] - Follow up as needed Mode of Arrival: Ambulatory Information source: Patient Notes: Patient is a 43 year old male with DVT and PE (dx on 12/15/18, placed on Xarelto) presents to the emergency department today complaining of chest pain and left facial swelling and pain. Patient presented to this ED on 11/24/2018 complaining of chest pain and stepping on a shell and was discharged home after a negative cardiac work up and instructed to take Ibuprofen and Doxycycline. Patient states he was diagnosed with a "left sided facial swelling" shortly after by Dr. Lincoln and prescribed Clindamycin and Tramadol. He states the swelling has been onset 3 days ago. Patient returns today stating his chest pain has returned and describes it as a burning sensation. He reports the chest pain is exacerbated when supine and relieved with walking. He states he has had intermittent chest pain for the last 2 years and had a negative nuclear stress test in [place]. He also complains of mild nausea. He denies a history of seizures. Patient also notes increased anxiety and frustration. He states he has a short temper with and family and does not understand why. He further reports not wanting to be around a lot of noise further stating he could not handle sitting in the ED waiting room. states when the patient has chest pain, he becomes angry over frivolous matters and would remove himself from situations. He states he has been diagnosed with Anti-social disorder and multiple other psych diagnosis that has changed over time. He states he personally does not believe in psychology because of this. He states "I know there is something wrong, I know I am not like most people". He denies a history of SI or HI. TRAVEL OUTSIDE OF THE [place] IN LAST 30 DAYS: No - Related Data Allergies/Adverse Reactions: Penicillins Allergy (Verified 10/15/18 12:59) Difficulty breathing Past Medical History - General Information source: Patient - Social History Smoking Status: Current Every Day Smoker Cigarette use (# per day): Yes - 1 PPD Chew tobacco use (# tins/day): No Smoking Education Provided: No Frequency of alcohol use: None Lives with: Family Family History: CAD - Past Medical History Cardiac Medical History: Reports: Hx DVT, Hx Pulmonary Embolism Pulmonary Medical History: Reports: Hx Pneumonia Psychiatric Medical History: Reports: Hx Depression Past Surgical History: Reports: Hx Appendectomy, Hx Tonsillectomy, Other - Ear Drum replaced - Immunizations Hx Diphtheria, Pertussis, Tetanus Vaccination: Yes Review of Systems - Review of Systems Constitutional: No symptoms reported EENT: See HPI Cardiovascular: See HPI, Chest pain Respiratory: No symptoms reported Gastrointestinal: No symptoms reported Genitourinary: No symptoms reported Male Genitourinary: No symptoms reported Musculoskeletal: See HPI Skin: No symptoms reported Hematologic/Lymphatic: No symptoms reported Neurological/Psychological: See HPI -: Yes All other systems reviewed and negative Physical Exam - Vital signs Vitals: Temp Pulse Resp BP Pulse Ox 98.8 F 75 16 140/85 H 97 12/16/18 23:27 12/16/18 23:27 12/16/18 23:27 12/16/18 23:27 12/16/18 23:27 - Notes Notes: GENERAL: Alert, mildly anxious, interacts well. No acute distress. HEAD: Normocephalic. Small amount of swelling, mild erythema of the skin over the left zygoma. EYES: Pupils equal, round, and reactive to light. Extraocular movements intact. ENT: Oral mucosa moist, tongue midline. Firm erythematous area just above left maxillary canine, not fluctuant, no discharge. Nares patent, no nasal septal hematoma, TM's intacts. NECK: Full range of motion. Supple. Trachea midline. LUNGS: Anterior trace expiratory wheezing. No rales or rhonchi. No respiratory distress. HEART: Regular rate and rhythm. No murmurs, gallops, or rubs. ABDOMEN: Soft, non-tender. Non-distended. Bowel sounds present in all 4 quadrants. No guarding, rigidity, or rebound. EXTREMITIES: Moves all 4 extremities spontaneously. No edema, radial and dorsalis pedis pulses 2/4 bilaterally. No cyanosis. NEUROLOGICAL: Alert and oriented x3. Normal speech. PSYCH: Mildly anxious, becomes more anxious while discussing recent history. SKIN: Warm, dry. Course - Re-evaluation Re-evalutation: 12/17/18 06:35 CBC unremarkable, CMP unremarkable, patient is worried about sepsis we requested that I check a lactic acid, this was normal, troponin undetectable x2, thyroid function studies are normal, chest x-ray unremarkable, CT scan of the facial bones shows 1.9 cm periapical verifying osteitis/abscess of the left paracentral anterior maxilla as well as left maxillary sinusitis and adjacent soft tissue cellulitis. I did discuss this finding with the ear nose and throat doctor aviation tactical readiness officer Dr. Guzmán who stated that this would need to be treated by an oral surgeon not an ENT. He did recommend adding additional bacteriocidal antibiotics to this patient's regimen however the only other appropriate antibiotics for a sinusitis or penicillin based and the patient has hives and difficulty breathing with penicillins so we will continue using clindamycin alone. Clindamycin does not have any interactions with Xarelto. Patient will be referred to our wild life manager as he is not certain that he is going to be able to find a dentist who is going to pull his teeth. He is also informed about the [facility] and other low cost dental clinics in the area. Discussed with patient that I am not certain what is causing his chest pain. It does not appear to be a worsening of his pulmonary embolism, in fact this is very similar to the pain the patient has been having intermittently for the past 2 years. We did spend an extensive amount of time talking about his life stressors and that though he is not suicidal or homicidal he is feeling quite depressed and anxious about everything that is going on in his life at this time and feels like a failure. I did recommend that the patient follow-up with a psychiatrist as an outpatient to discuss possible medical treatment for the sensations and that there may be better medications for him to use than Xanax for his chronic anxiety. Patient is open to this idea but is not certain he is going to follow through on it. Patient is discharged home. - Vital Signs Vital signs: Temp Pulse Resp BP Pulse Ox 98.8 F 75 16 118/76 94 12/16/18 23:27 12/16/18 23:27 12/17/18 06:00 12/17/18 01:01 12/17/18 06:00 - Laboratory Result Diagrams: 12/17/18 00:53 12/17/18 00:53 - EKG Interpretation by Me Additional EKG results interpreted by me: 12/17/18 06:38 EKG shows sinus rhythm rate 69, left bundle branch block, incomplete right bundle branch block, no ST segment elevations or depressions, no T wave inversions per my interpretation. Discharge - Discharge Clinical Impression: Chest pain of uncertain etiology, Abscess of maxilla, Left maxillary sinusitis, Anxiety, Anticoagulation adequate Condition: Stable Disposition: HOME, SELF-CARE Additional Instructions: Today I was not able to figure out exactly why you are having chest pain. It does not appear to be coming from a worsening of your pulmonary embolism nor does it appear to be coming from a heart attack or pneumonia. Please continue follow-up with cardiology and gastroenterology as an outpatient. Today we did find a left maxillary sinus infection that appears to have extended into your maxilla (upper jaw bone). This will need to be drained by an oral surgeon. I have given you information about 2 oral surgeons in the area that she should call for possible follow-up. I have also included information about low-cost dental clinics such as the [facility]. Please continue taking your clindamycin as directed. We did speak extensively today about your anxiety and your life stressors. I strongly recommended that you follow-up with a psychiatrist such as Dr. Rachel or one of the other psychiatrists at [facility]. Referrals: BENTLEY KHAN DDS [ACTIVE STAFF] - Follow up as needed JEREMIAH GUPTA MD [ACTIVE STAFF] - Follow up as needed EFRAIN RACHEL MD [NO LOCAL MD] - Follow up as needed [facility] [Provider Group] - Follow up as needed I personally performed the services described in the documentation, reviewed and edited the documentation which was dictated to the scribe in my presence, and it accurately records my words and actions.
== END 2018-12-17 06:49 | disposition home or self-care (01) ==
LOC: ER 23:11
DX: M27.2 Inflammatory conditions of jaws (principal); J32.0 Chronic maxillary sinusitis; F41.9 Anxiety disorder, unspecified; R07.9 Chest pain, unspecified; R22.0 Localized swelling, mass and lump, head; F17.210 Nicotine dependence, cigarettes, uncomplicated; Z79.02 Long term (current) use of antithrombotics/antiplatelets; Z86.718 Personal history of other venous thrombosis and embolism; Z86.711 Personal history of pulmonary embolism; Z88.0 Allergy status to penicillin
CPT/HCPCS: 93005; 99284; 36415; 84439; 82553; 82550; 84443; 85025; 80053; 84484; 84481; 83605; 71045; 70487; 93010; A9270

== ENCOUNTER → 2019-01-23 | Outpatient (CLI) | payer MEDICARE ==
--- NOTE | 2019-01-24 00:50 | RADIOLOGY REPORT (SQ) ---
EXAM: Ultrasound veins lower extremity unilateral CLINICAL DATA: 43-year-old male with left lower extremity pain. TECHNICAL DATA: Grayscale and color Doppler images of the deep veins of the left lower extremity were performed on 01/23/2019 at 11:14 AM. Comparisons: Prior venous Doppler performed on 10/15/2018. FINDINGS: Grayscale and color Doppler images of the deep veins of the left lower extremity was performed. The grayscale images reveal normal compressibility of the deep veins. The Doppler images reveal normal flow, phasicity with respiration and normal augmentation with compression. The color flow images reveal normal saturation of flow within the deep veins of the left lower extremity. No intraluminal echoes are identified to suggest nonocclusive thrombus. The superficial veins are patent. No additional abnormalities are identified. IMPRESSION: No evidence of deep venous thrombosis in the left lower extremity
== END ==
LOC: SP 11:05
PROVIDERS: ATTEND Physician Assistant Medical
DX: M79.605 Pain in left leg (principal); Z86.711 Personal history of pulmonary embolism
CPT/HCPCS: 93971

== ENCOUNTER → 2019-05-18 | Outpatient (CLI) | payer MEDICARE ==
--- NOTE | 2019-05-18 13:15 | RADIOLOGY REPORT (SQ) ---
EXAM DESCRIPTION: CTA CHEST COMPLETED DATE/TIME: 05/18/2019 1:02 pm REASON FOR STUDY: OTHER PULMONARY EMBOLISM WITHOUT ACUTE COR PULMONALE (I26.99), SOB (R06.02) R06.02 SHORTNESS OF BREATH I26.99 OTHER PULMONARY EMBOLISM WITHOUT ACUTE COR PULMONALE COMPARISON: 10/15/2018 TECHNIQUE: CT scan of the chest performed using helical scanning technique with dynamic intravenous contrast injection. Images reviewed with lung, soft tissue and bone windows. Reconstructed coronal and sagittal MPR images reviewed. Additional 3 dimensional post-processing performed to develop Maximal Intensity Projection images (ND P). All images stored on PACS. All CT scanners at this facility use dose modulation, iterative reconstruction, and/or weight based d osing when appropriate to reduce radiation dose to as low as reasonably achievable (ALARA). [facility]: Dose Right [facility]: CareDose [facility]: Dose Right [facility]: Teradose 4D [facility]: [employer] CONTRAST TYPE AND DOSE: contrast/concentration: Isovue 350.00 mg/ml; Total Contrast Delivered: 65.0 ml; Total Saline Delivered: 80.0 ml RENAL FUNCTION: GFR > 60. RADIATION DOSE: CT Rad equipment meets quality standard of care and radiation dose reduction techniq ues were employed. CTDIvol: 15.4 - 22.5 mGy. DLP: 697 mGy-cm. . LIMITATIONS: Timing of contrast. FINDINGS: LUNGS AND PLEURA: No masses, infiltrates, or pneumothorax. No pleural effusions or pleura l calcifications. AORTA AND GREAT VESSELS: No aneurysm. No dissection. HEART: No pericardial effusion. No significant coronary artery calcifications. PULMONARY ARTERIES: No emboli visualized in the main pulmonary arteries or the segmental branches. HILAR AND MEDIASTINAL STRUCTURES: No identified masses or abnormal nodes. HARDWARE: None in the chest. UPPER ABDOMEN: Hepatic cysts. Limited exam. THYROID AND OTHER SOFT TISSUES: No masses. No adenopathy. BONES: No acute or significant finding. 3D MIPS: Confirm above findings. OTHER: No other significant finding. IMPRESSION: No PE. No acute findings in the chest. COMMENT: Quality ID # [id number]: Final reports with documentation of one or more dose reduction techniques (e.g., Automated exposure control, adjustment of the mA and/or kV according to patient size, use of iterative reconstruction technique) TECHNICAL DOCUMENTATION: JOB ID: [id number] [employer]- All Rights Reserved Reading location - IP/workstation name: [email or web address]
== END ==
LOC: RAD 12:31
PROVIDERS: ATTEND Nurse Practitioner Family
DX: I26.99 Other pulmonary embolism without acute cor pulmonale (principal); R06.02 Shortness of breath
CPT/HCPCS: 71275

== ENCOUNTER → 2019-11-26 | Outpatient (CLI) | payer MEDICARE ==
--- NOTE | 2019-11-26 16:09 | RADIOLOGY REPORT (SQ) ---
EXAM DESCRIPTION: VENOUS UNILATERAL LOWER IMAGES COMPLETED DATE/TIME: 11/26/2019 3:56 pm REASON FOR STUDY: RLE SWELLING M79.609 PAIN IN UNSPECIFIED LIMB COMPARISON: None. TECHNIQUE: Dynamic and static prieto scale and color images acquired of the right leg venous system. S elected spectral images acquired with additional compression and augmentation maneuvers. The contrala teral common femoral vein and saphenofemoral junction were also imaged. Images stored on PACS. LIMITATIONS: None. FINDINGS: COMMON FEMORAL: Normal phasicity, compression and augmentation. No visualized echogenic ma terial on prieto scale. No defects on color images. FEMORAL: Normal compression and augmentation. No visualized echogenic material on prieto scale. No defe cts on color images. POPLITEAL: Normal compression, augmentation. No visualized echogenic material on prieto scale. No defec ts on color images. CALF VESSELS: Normal compression, augmentation. No visualized echogenic material on prieto scale. No de fects on color images. GSV and SSV: Normal compression, augmentation. No visualized echogenic material on prieto scale. No def ects on color images. ANY DEEP VENOUS INSUFFICIENCY: No. ANY EVIDENCE OF POPLITEAL CYST: No. OTHER: No other finding. CONTRALATERAL COMMON FEMORAL VEIN AND SAPHENOFEMORAL JUNCTION: Normal phasicity, compression and augmentation. No visualized echogenic material on prieto scale. No de fects on color images. IMPRESSION: NO EVIDENCE OF DVT OR SVT IN THE RIGHT LEG. TECHNICAL DOCUMENTATION: JOB ID: [id number] 2010 [employer]- All Rights Reserved Reading location - IP/workstation name: [email or web address]
== END ==
LOC: SP 13:55
PROVIDERS: ATTEND Nurse Practitioner Family
DX: M79.604 Pain in right leg (principal); M79.89 Other specified soft tissue disorders
CPT/HCPCS: 93971

== ENCOUNTER → 2020-05-13 | Outpatient (CLI) | payer MEDICARE ==
--- NOTE | 2020-05-13 16:06 | RADIOLOGY REPORT (SQ) ---
EXAM DESCRIPTION: WRIST RIGHT 2 VIEWS IMAGES COMPLETED DATE/TIME: 05/13/2020 3:44 pm REASON FOR STUDY: M25.531 PAIN IN RIGHT WRIST M25.531 PAIN IN RIGHT WRIST COMPARISON: None. NUMBER OF VIEWS: Two views. TECHNIQUE: AP and lateral radiographic images acquired of the right wrist. LIMITATIONS: None. FINDINGS: MINERALIZATION: Normal. BONES: No acute fracture or dislocation. No worrisome bone lesions. Normal alignment. No significant osteophytes. JOINTS: No erosions. No erma-articular osteopenia. No chondrocalcinosis. SOFT TISSUES: No swelling. No calcifications. OTHER: No other significant finding. IMPRESSION: NEGATIVE STUDY OF THE RIGHT WRIST. NO EXPLANATION FOR PAIN. TECHNICAL DOCUMENTATION: JOB ID: [id number] 2010 [employer]- All Rights Reserved Reading location - IP/workstation name: [email or web address]
== END ==
LOC: RAD 15:25
PROVIDERS: ATTEND Internal Medicine
DX: M25.531 Pain in right wrist (principal)